=== PATIENT | female | born 1975 | race Caucasian/White ===

== ENCOUNTER 2025-06-30 18:23 | Observation (INO) | payer OTHER, SELFPAY ==
[2025-06-30] VITALS (21 sets, daily range): BP systolic 112–146; BP diastolic 53–96; PULSE 70–78; RESP 20; TEMP 36.6–37.3; O2SAT 92–100; BMI 38.6; BMI 40.2
--- NOTE | ~2025-06-30 | XR_ITS ---
EXAMINATION: XR retrograde pyelo w/stent LT DATE: 07/01/2025 13:23 INDICATION: Cystoscopy left stent TECHNIQUE: Fluoroscopic images from a left internal ureteral stent placement are submitted for review. 13 seconds of fluoroscopy time. FINDINGS: There is a left double-J internal ureteral stent projecting in expected position, with proximal Woodward loop at the level of the renal pelvis and distal loop in the pelvis within the bladder lumen. IMPRESSION: 1. Left internal ureteral stent placement. Please refer to real-time procedural findings for details. Reviewed, dictated and finalized at location I. 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 Left internal ureteral stent placement. Please refer to real-time procedur al findings for details.
--- NOTE | ~2025-06-30 | CT_ITS ---
EXAMINATION: CT abdomen and pelvis including lumbar spine without contrast: DATE: 06/30/2025. INDICATION: Right flank pain. Back pain. TECHNIQUE: CT was performed without contrast. Multiplanar reconstruction was obtained including lumbar spine. Radiation dose 1375 MG Y C.M. COMPARISON: None. FINDINGS: Lung bases do not show acute findings. No acute findings of liver and spleen in this noncontrast study. The gallbladder, pancreas and adrenal glands are normal. No calculi are obstruction of the right kidney. 5 mm calculus is noted on the left side the proximal left ureter at L2-3 level causing moderately significant hydronephrosis. No evidence of bladder calculus. No inflammatory changes in the pelvis. Nonspecific mild para-aortic lymphadenopathy with nodes measuring 5 to 6 mm in short axis in the midabdomen. No acute findings of the lumbar spine. Significant degenerative disc disease at L5-S1 level. IMPRESSION: 1. Limited noncontrast examination is not optimal to evaluate solid viscera, neoplasms and vascular structures. 2. 5 mm calculus in the proximal left ureter at L2-3 level causing moderately significant left hydronephrosis. 3. Nonspecific mild para-aortic lymphadenopathy as described above. 4. Significant degenerative disc disease at L5-S1 level lumbar spine. Reviewed, dictated and finalized at location T. R ENERGY TECHNICIAN IMPRESSION: 1. Limited noncontrast examination is not optimal to evaluate solid viscera, ne oplasms and vascular structures. 2. 5 mm calculus in the proximal left ureter at L2-3 level causing moderately s ignificant left hydronephrosis. 3. Nonspecific mild para-aortic lymphadenopathy as described above. 4. Significant degenerative disc disease at L5-S1 level lumbar spine.
--- NOTE | 2025-06-30 18:41 | ED.BACK ---
HPI - Back Pain/Injury General Chief Complaint: Abdominal Pain <Manju Teresa APRN - Last Filed: 06/30/25 18:44> Stated Complaint: abdominal/flank pain x 4 days <Manju Teresa APRN - Last Filed: 06/30/25 18:44> Time Seen by Provider: 06/30/25 18:41 <Manju Teresa APRN - Last Filed: 06/30/25 18:44> Focused HPI: Patient is a 50-year-old female who presents to the ER with left back/flank pain. She reports her pain started earlier today. Patient reports her last bowel movement was at 11:00 a.m. this morning and it was small/liquid. She denies any urinary symptoms, recent fevers, chest pain or shortness of breath. Patient denies any medical history relevant to this ER visit. She does endorse nausea and vomiting. GENERAL: Ill-appearing, well-nourished, and in no acute distress. HEAD: Normocephalic, atraumatic. CHEST: Clear to auscultation. ?No respiratory distress. HEART: Regular rate and rhythm.?+ R CVA tenderness NEURO: ?Alert and oriented x3. ABD: + BS, no abdominal tenderness Patient screened in triage and initial orders placed.? ?Additional care and disposition to be based upon?diagnostic testing and treatment. <Manju Teresa APRN - Last Filed: 06/30/25 18:44> History of Present Illness HPI Narrative: He can not tell me that she has been having pain to her left flank now for about 4 days, it has been increasing and worsening so she finally came in today because she can not stand it, she has also been having nausea vomiting. No history of kidney stones. <Mindi Rothman MD - Last Filed: 06/30/25 22:08> Related Data Home Medications: Home Medications ?Medication ?Instructions ?Recorded ?Confirmed ?Last Taken ?Type buspirone 15 mg tablet 15 mg PO DAILY 06/30/25 07/01/25 06/30/25 History meloxicam 15 mg tablet 15 mg PO DAILY 07/01/25 07/01/25 06/30/25 History sertraline 100 mg tablet 100 mg PO DAILY 07/01/25 07/01/2525 History <Manju Teresa APRN - Last Filed: 06/30/25 18:44> Allergies/Adverse Reactions: Allergies Allergy/AdvReac Type Severity Reaction Status Date / Time codeine Allergy Unknown HIVES Verified 06/30/25 18:24 <Manju Teresa APRN - Last Filed: 06/30/25 18:44> Review of Systems Review of Systems: All systems reviewed & are unremarkable except as noted in HPI and below <Mindi Rothman MD - Last Filed: 06/30/25 22:08> [facility] Social History Social History: Social History Smoking status: Never smoker Alcohol intake: never Substance use type: does not use Lack of Transportation: No Lack of Food: Never True Current Housing: Decline to Answer Concerned About Future Housing: No Difficulty Paying Gas/Electric Bills: No Difficulty Paying for Meds: No Currently Unemployed: No Education: Bachelor's Degree Difficulty w/ Childcare or Family Care: No Spiritual care concerns: No <Manju Teresa APRN - Last Filed: 06/30/25 18:44> Exam Narrative: EXAMINATION OF ORGAN SYSTEMS/BODY AREAS: Constitutional: Vital signs per nursing GENERAL: Appears quite uncomfortable HEAD: Normal with no signs of head trauma. EYES: EOMI, conjunctiva normal ENT: Hearing grossly intact LUNGS: Nonlabored breathing. HEART: [Regular rate and rhythm] ABD: [Soft], some left CVA tenderness EXT: Normal range of motion SKIN: [No rashes or lesions.] NEURO: [Alert and oriented x 3. No gross focal sensory or strength deficits.] PSYCH: Normal affect <Mindi Rothman MD - Last Filed: 06/30/25 22:08> Course Course Emergency Course: Patient care signed over pending discussion with Urology. I spoke to Dr. Rose from urology recommended hospitalist admission and making the patient NPO at midnight for potential interventions. Recommended pain control and antibiotics if he UTI found. Urinalysis returned without any UTI. Patient admitted to the hospitalist service per discussion with previous provider. <Chuck An MD - Last Filed: 07/01/25 03:12> Vital Signs Vital signs: Vital Signs Temperature 36.6 C 06/30/25 18:34 Pulse Rate 78 06/30/25 18:34 Respiratory Rate 20 06/30/25 18:34 Blood Pressure 140/92 H 06/30/25 18:34 Pulse Oximetry 99 06/30/25 18:34 Oxygen Delivery Room Air 06/30/25 18:34 Temperature 36.9 C 06/30/25 23:50 Pulse Rate 70 06/30/25 23:50 Respiratory Rate 20 06/30/25 23:50 Blood Pressure 112/53 L 06/30/25 23:50 Pulse Oximetry 98 06/30/25 23:50 Oxygen Delivery Room Air 06/30/25 23:55 <Manju Teresa, [employer] DEVELOPMENT ENGINEER - Last Filed: 06/30/25 18:44> Vital Signs Temperature 36.6 C 06/30/25 18:34 Pulse Rate 78 06/30/25 18:34 Respiratory Rate 20 06/30/25 18:34 Blood Pressure 140/92 H 06/30/25 18:34 Pulse Oximetry 99 06/30/25 18:34 Oxygen Delivery Room Air 06/30/25 18:34 Temperature 36.9 C 06/30/25 23:50 Pulse Rate 70 06/30/25 23:50 Respiratory Rate 20 06/30/25 23:50 Blood Pressure 112/53 L 06/30/25 23:50 Pulse Oximetry 98 06/30/25 23:50 Oxygen Delivery Room Air 06/30/25 23:55 <Mindi Rothman MD - Last Filed: 06/30/25 22:08> Vital Signs Temperature 36.6 C 06/30/25 18:34 Pulse Rate 78 06/30/25 18:34 Respiratory Rate 20 06/30/25 18:34 Blood Pressure 140/92 H 06/30/25 18:34 Pulse Oximetry 99 06/30/25 18:34 Oxygen Delivery Room Air 06/30/25 18:34 Temperature 36.9 C 06/30/25 23:50 Pulse Rate 70 06/30/25 23:50 Respiratory Rate 20 06/30/25 23:50 Blood Pressure 112/53 L 06/30/25 23:50 Pulse Oximetry 98 06/30/25 23:50 Oxygen Delivery Room Air 06/30/25 23:55 <Chuck An MD - Last Filed: 07/01/25 03:12> MDM - Back Pain/Injury Medical Records Medical records narrative: ED COURSE AND MEDICAL DECISION MAKINF presenting to the emergency department for acute flank pain for the last 4 days, symptoms are concerning for likely renal colic versus pyelonephritis. Urinalysis is ordered. [Morphine 4 mg, Zofran 4mg] are ordered. CT scan of the abdomen/pelvis is ordered. Labs are remarkable for: Elevated white count 12.1, creatinine 0.9. CT scan of the abdomen/pelvis is reviewed by myself and interpreted by radiology: 5 mm proximal left ureter stone. On reevaluation, the patient still having some pain but appears more comfortable. I did discuss potential discharge with outpatient follow-up versus admission for pain control, she would rather be admitted at this time since she is concerned she may not be able to tolerate the pain at home. Pending urology call back, discussed with hospitalist for admission. <Mindi Rothman MD - Last Filed: 06/30/25 22:08> Lab Data Result diagrams: 06/30/25 20:33 06/30/25 20:33 <Manju Teresa APRN - Last Filed: 06/30/25 18:44> Labs: Lab Results 06/30/25 06/30/25 Range/Units 20:33 21:46 WBC 12.1 H (4.5-10.0) K/mm3 RBC 4.19 L (4.2-5.4) M/mm3 Hgb 12.8 (12.0-15.0) g/dL Hct 38.3 (37.0-47.0) % MCV 91.4 (80-100) fl MCH 30.5 (26-34) pg MCHC 33.4 (32-36) g/dl RDW 13.8 (11.5-14.5) % Plt Count 307 (150-375) k/mm3 MPV 9.3 (7.4-10.4) fl Immature Gran % (Auto) 0.2 (0-0.5) % Neut % (Auto) 84.6 H (45.5-73.1) % Lymph % (Auto) 7.4 L (18.3-44.2) % [place] % (Auto) 7.3 (2.6-8.5) % Eos % (Auto) 0.2 (0-4.4) % Baso % (Auto) 0.3 (0.2-1.2) % Lymph # (Auto) 0.90 (0.9-3.2) K/mm3 [place] # (Auto) 0.9 H (0.1-0.6) K/mm3 Eos # (Auto) 0.0 (0-0.3) K/mm3 Baso # (Auto) 0.0 (0.0-0.1) K/mm3 Abs Immat Gran (auto) 0.03 (0.00-0.031) K/mm3 Absolute Neuts (auto) 10.2 H (1.3-6.7) K/mm3 Absolute Nucleated RBC 0.000 (0.0-0.012) K/mm3 Nucleated RBC % 0.0 (0.0-0.2) % Sodium 136 L (137-145) mmol/L Potassium 4.1 (3.4-5.0) mmol/L Chloride 104 (98-107) mmol/L Carbon Dioxide 26 (22-30) mmol/L Anion Gap 6 (4-12) mmol/L BUN 20 H (7-17) mg/dL Creatinine 0.90 (0.7-1.0) mg/dL Estim Creat Clear Calc 84 ml/min Estimated GFR > 60 (59 - ) Glucose 99 (65-110) mg/dL Calcium 9.1 (8.4-10.2) mg/dL Total Bilirubin 0.4 (0.2-1.3) mg/dL AST 24 (14-36) U/L ALT 16 (6-35) U/L Alkaline Phosphatase 61 (38-126) U/L Total Protein 6.9 (6.3-8.2) g/dL Albumin 3.9 (3.5-5.1) g/dL Urine Color Yellow (Yellow) Urine Appearance Clear (Clear) Urine pH 5.5 (5.0-9.0) Ur Specific [place] 1.015 (1.001-1.035) Urine Protein Negative (Negative) mg/dL Urine Glucose (UA) Negative (Negative) mg/dL Urine Ketones 1+ H (Negative) mg/dL Ur Blood (Man) 2+ H (Negative) Urine Nitrate Negative (Negative) Urine Bilirubin Negative (Negative) Urine Urobilinogen 0.2 (<2.0) mg/dL Leukocyte Esterase Rfl Trace H (Negative) CHRIS/UL Urine RBC 11-20 H (0-2) /hpf Urine WBC 0-5 (0-3) /hpf Ur Squamous Epith Cells Occasional (Few) /hpf Urine Bacteria Rare /hpf Urine Casts 0-2 <Manju Teresa, [employer] DEVELOPMENT ENGINEER - Last Filed: 06/30/25 18:44> Lab Results 06/30/25 06/30/25 Range/Units 20:33 21:46 WBC 12.1 H (4.5-10.0) K/mm3 RBC 4.19 L (4.2-5.4) M/mm3 Hgb 12.8 (12.0-15.0) g/dL Hct 38.3 (37.0-47.0) % MCV 91.4 (80-100) fl MCH 30.5 (26-34) pg MCHC 33.4 (32-36) g/dl RDW 13.8 (11.5-14.5) % Plt Count 307 (150-375) k/mm3 MPV 9.3 (7.4-10.4) fl Immature Gran % (Auto) 0.2 (0-0.5) % Neut % (Auto) 84.6 H (45.5-73.1) % Lymph % (Auto) 7.4 L (18.3-44.2) % [place] % (Auto) 7.3 (2.6-8.5) % Eos % (Auto) 0.2 (0-4.4) % Baso % (Auto) 0.3 (0.2-1.2) % Lymph # (Auto) 0.90 (0.9-3.2) K/mm3 [place] # (Auto) 0.9 H (0.1-0.6) K/mm3 Eos # (Auto) 0.0 (0-0.3) K/mm3 Baso # (Auto) 0.0 (0.0-0.1) K/mm3 Abs Immat Gran (auto) 0.03 (0.00-0.031) K/mm3 Absolute Neuts (auto) 10.2 H (1.3-6.7) K/mm3 Absolute Nucleated RBC 0.000 (0.0-0.012) K/mm3 Nucleated RBC % 0.0 (0.0-0.2) % Sodium 136 L (137-145) mmol/L Potassium 4.1 (3.4-5.0) mmol/L Chloride 104 (98-107) mmol/L Carbon Dioxide 26 (22-30) mmol/L Anion Gap 6 (4-12) mmol/L BUN 20 H (7-17) mg/dL Creatinine 0.90 (0.7-1.0) mg/dL Estim Creat Clear Calc 84 ml/min Estimated GFR > 60 (59 - ) Glucose 99 (65-110) mg/dL Calcium 9.1 (8.4-10.2) mg/dL Total Bilirubin 0.4 (0.2-1.3) mg/dL AST 24 (14-36) U/L ALT 16 (6-35) U/L Alkaline Phosphatase 61 (38-126) U/L Total Protein 6.9 (6.3-8.2) g/dL Albumin 3.9 (3.5-5.1) g/dL Urine Color Yellow (Yellow) Urine Appearance Clear (Clear) Urine pH 5.5 (5.0-9.0) Ur Specific [place] 1.015 (1.001-1.035) Urine Protein Negative (Negative) mg/dL Urine Glucose (UA) Negative (Negative) mg/dL Urine Ketones 1+ H (Negative) mg/dL Ur Blood (Man) 2+ H (Negative) Urine Nitrate Negative (Negative) Urine Bilirubin Negative (Negative) Urine Urobilinogen 0.2 (<2.0) mg/dL Leukocyte Esterase Rfl Trace H (Negative) CHRIS/UL Urine RBC 11-20 H (0-2) /hpf Urine WBC 0-5 (0-3) /hpf Ur Squamous Epith Cells Occasional (Few) /hpf Urine Bacteria Rare /hpf Urine Casts 0-2 <Mindi Rothman MD - Last Filed: 06/30/25 22:08> Lab Results 06/30/25 06/30/25 Range/Units 20:33 21:46 WBC 12.1 H (4.5-10.0) K/mm3 RBC 4.19 L (4.2-5.4) M/mm3 Hgb 12.8 (12.0-15.0) g/dL Hct 38.3 (37.0-47.0) % MCV 91.4 (80-100) fl MCH 30.5 (26-34) pg MCHC 33.4 (32-36) g/dl RDW 13.8 (11.5-14.5) % Plt Count 307 (150-375) k/mm3 MPV 9.3 (7.4-10.4) fl Immature Gran % (Auto) 0.2 (0-0.5) % Neut % (Auto) 84.6 H (45.5-73.1) % Lymph % (Auto) 7.4 L (18.3-44.2) % [place] % (Auto) 7.3 (2.6-8.5) % Eos % (Auto) 0.2 (0-4.4) % Baso % (Auto) 0.3 (0.2-1.2) % Lymph # (Auto) 0.90 (0.9-3.2) K/mm3 [place] # (Auto) 0.9 H (0.1-0.6) K/mm3 Eos # (Auto) 0.0 (0-0.3) K/mm3 Baso # (Auto) 0.0 (0.0-0.1) K/mm3 Abs Immat Gran (auto) 0.03 (0.00-0.031) K/mm3 Absolute Neuts (auto) 10.2 H (1.3-6.7) K/mm3 Absolute Nucleated RBC 0.000 (0.0-0.012) K/mm3 Nucleated RBC % 0.0 (0.0-0.2) % Sodium 136 L (137-145) mmol/L Potassium 4.1 (3.4-5.0) mmol/L Chloride 104 (98-107) mmol/L Carbon Dioxide 26 (22-30) mmol/L Anion Gap 6 (4-12) mmol/L BUN 20 H (7-17) mg/dL Creatinine 0.90 (0.7-1.0) mg/dL Estim Creat Clear Calc 84 ml/min Estimated GFR > 60 (59 - ) Glucose 99 (65-110) mg/dL Calcium 9.1 (8.4-10.2) mg/dL Total Bilirubin 0.4 (0.2-1.3) mg/dL AST 24 (14-36) U/L ALT 16 (6-35) U/L Alkaline Phosphatase 61 (38-126) U/L Total Protein 6.9 (6.3-8.2) g/dL Albumin 3.9 (3.5-5.1) g/dL Urine Color Yellow (Yellow) Urine Appearance Clear (Clear) Urine pH 5.5 (5.0-9.0) Ur Specific [place] 1.015 (1.001-1.035) Urine Protein Negative (Negative) mg/dL Urine Glucose (UA) Negative (Negative) mg/dL Urine Ketones 1+ H (Negative) mg/dL Ur Blood (Man) 2+ H (Negative) Urine Nitrate Negative (Negative) Urine Bilirubin Negative (Negative) Urine Urobilinogen 0.2 (<2.0) mg/dL Leukocyte Esterase Rfl Trace H (Negative) CHRIS/UL Urine RBC 11-20 H (0-2) /hpf Urine WBC 0-5 (0-3) /hpf Ur Squamous Epith Cells Occasional (Few) /hpf Urine Bacteria Rare /hpf Urine Casts 0-2 <Chuck An MD - Last Filed: 07/01/25 03:12> Discharge Plan Discharge Clinical Impression: Calculus of proximal left ureter <Manju Teresa APRN - Last Filed: 06/30/25 18:44> Patient Disposition: Still a Patient <Manju Teresa APRN - Last Filed: 06/30/25 18:44> Condition: Stable <Manju Teresa APRN - Last Filed: 06/30/25 18:44>
[2025-06-30 20:40] LABS: Hematocrit 38.3 % (37.0-47.0); Hemoglobin 12.8 g/dL (12.0-15.0); Immature Granulocyte Percent A 0.2 % (0-0.5); Lymphocytes Absolute Auto 0.90 K/mm3 (0.9-3.2); Mean Corpuscular HGB Conc 33.4 g/dl (32-36); Mean Corpuscular Hemoglobin 30.5 pg (26-34); Mean Corpuscular Volume 91.4 fl (80-100); Nucleated Red Blood Cells Absolute Auto 0.000 K/mm3 (0.0-0.012); Nucleated Red Blood Cells Perc 0.0 % (0.0-0.2); Platelet Count Result 307 k/mm3 (150-375); Red Blood Count 4.19 M/mm3 (4.2-5.4); White Blood Count 12.1 K/mm3 (4.5-10.0)
[2025-06-30 20:50] LABS: Alanine Aminotransferase 16 U/L (6-35); Albumin Level 3.9 g/dL (3.5-5.1); Alkaline Phosphatase 61 U/L (38-126); Anion Gap 6 mmol/L (4-12); Aspartate Amino Transferase 24 U/L (14-36); Bilirubin,Total 0.4 mg/dL (0.2-1.3); Blood Urea Nitrogen 20 mg/dL (7-17); Calcium 9.1 mg/dL (8.4-10.2); Carbon Dioxide 26 mmol/L (22-30); Chloride 104 mmol/L (98-107); Estimated CRCL calculation 84 ml/min; Estimated Glomerular Filt Rate > 60; Glucose 99 mg/dL (65-110); Potassium 4.1 mmol/L (3.4-5.0); Sodium 136 mmol/L (137-145); Total Protein 6.9 g/dL (6.3-8.2)
[2025-06-30] MEDS: MORPHINE SULFATE (*CRX) 4 MG/ML INJ IV PUSH ×2 (20:50→23:00)
[2025-06-30] MEDS: ONDANSETRON INJ 4 MG/2 ML VIAL IV PUSH (20:50)
--- OUTSIDE RECORDS SUMMARY | 2025-06-30 20:59 | XMS_ITS | Data Portability ---
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 Patient will come back in a year unless there are new symptoms. [email or web address] Not available 08/21/2021 16:01:03 09/03/2022 09/03/2022 Annual gynecological exam performed. Patient will come back in a year unless there are new symptoms. Not available 09/03/2022 16:55:55 Plan of Treatment Reminders Order Date Submit Date Provider Last Modified By Organization Details Last Modified Time Details Appointments None recorded. Lab None recorded. Referral None recorded. Procedures None recorded. Surgeries None recorded. Imaging MAMMO, screening, bilateral 2022 023 RICHY Not available 3 05:01:41 Medication Orders triamcinolo ne acetonide 0.1 % topical ointment 2021 022 [employer] [employer] #[id number], [address] [facility], [place], [place], [id number], 3 16:56:23 Patient TargetsNo targets recorded. Patient InstructionsNo instructions recorded. Reason for Referral None Reported. 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 Elect [place] by Otto Candelaria MD on 022 at 12:59 PM ----- ----- ----- ----- ----- ----- ----- ----- ----- ----- ----- ----- ----- ----- ----- ----- ----- ---- COMME NT: There are no viral cytop athic effec ts seen. There is no dyspl martha or neopl martha. CLINI [facility] INFOR MATIO N: not provi ded MICRO SCOPI C DESCR IPTIO N: A micro scopi c exami natio n was perfo rmed. GROSS DESCR IPTIO N: A. U. The speci men is recei miguel a in forma amparo label ed with the patie nt's name and demog raphi cs only. It consi sts of a duarte skin tag measu ring 1.4 x 1.0 x 0.6 cm. The erasmo n is inked blue. The speci men is trise cted and submi tted zanar nathalie in casse tte A1. Gross ed by Parish Soto Not Available [facility] (Lab) [address], [place], [address], 09/05/2021 14:02:30 Result Notes None recorded. Procedures Surgical History Date Name Laterality Status Provider Name and Address Organization Details Recorded Time 09/09/19 22 colonoscopy completed Kendal Price [facility] [address], [place], [address], [facility] 09/03/2022 17:04:09 09/03/19 22 Skin Tag Removal completed Kendal Price [facility] [address], [place], [address], [facility] 09/03/2021 16:36:18 08/13/19 22 Date of Last Mammogram completed [facility] 08/21/2021 16:01:28 Laparoscopy completed [facility] 08/21/2021 16:01:39 Tonsillectomy completed [facility] 08/21/2021 16:01:39 Tubal Ligation completed [facility] 08/21/2021 16:01:39 Partial Hysterectomy completed [facility] 08/21/2021 16:01:39 Imaging Results None recorded. Procedure Notes None recorded. Medical Equipment None Reported. Allergies Allergen ID Allergen Name Allergen Category Reaction Reaction Severity Criticality Documentation Date Start Date Code Code System Note Provider Name and Address Organization Details Recorded Time 58351 codeine medicatio n rash moderate Not available 08/21/2021 2670 [facility] 16:01:16 Medications Name Sig Start Date Stop Date Status Note LastModified by Organization Details LastModified Time valacyclovi r 1 gram tablet TAKE 1 TABLET BY MOUTH TWICE DAILY FOR 7 DAYS active Not Available Not Available No t Available meloxicam 15 mg tablet TAKE 1 TABLET BY MOUTH EVERY DAY active Not Available Not Available No t Available sertraline 100 mg tablet TAKE 1 TABLET BY MOUTH EVERY DAY active Not Available Not Available No t Available triamcinolo ne acetonide 0.1 % topical cream APPLY THIN LAYER TOPICALLY TO THE AFFECTED AREA TWICE DAILY 09/03 completed Not Available Not Available Not Available cyclopentol ate 1 % eye drops 09/03 completed Not Available Not Available Not Available prednisolon e acetate 1 % eye drops,suspe nsion 09/03 completed Not Available Not Available Not Available meclizine 25 mg tablet TAKE 1 TABLET BY MOUTH EVERY DAY NEEDED active Not Available Not Available No t Available triamcinolo ne acetonide 0.1 % topical ointment APPLY THIN LAYER TOPICALLY TO THE AFFECTED AREA 1 TO 2 TIMES PER DAY FOR 7 DAYS NEEDED 09/03 completed Not Available Not Available Not Available polymyxin B sulfate 10,000 unit-trimet hoprim 1 mg/mL eye drops INSTILL 3 DROPS IN LEFT EYE THREE TIMES DAILY FOR 7 DAYS 09/03 completed Not Available Not Available Not Available hydroxyzine HCl 25 mg tablet TAKE 1 TABLET BY MOUTH FOUR TIMES DAILY FOR 15 DAYS NEEDED active Not Available Not Available No t Available ondansetron 4 mg disintegrat ing tablet DISSOLVE 1 TO 2 TABLETS BY MOUTH EVERY 6 HOURS NEEDED active Not Available Not Available No t Available phentermine 37.5 mg capsule active Not Available Not Available Not Available Valtrex 09/03 completed Not Available Not Available Not Available diclofenac 1 % topical gel APPLY TO THE LEFT KNEE TWICE DAILY 08/21 completed Not Available Not Available Not Available Clenpiq 10 mg-3.5 gram-12 gram/160 mL oral solution TAKE DIRECTED 09/03 completed Not Available Not Available Not Available Vitals Date Recorded Systolic And Diastolic Provider Name and Address Organization Details Last Updated DateTime 08/21/2021 128/80 mm[Hg] Kendal Price, [facility] [address], [place], [address], [facility] 08/21/2021 17:56:00 Date Recorded Body height Body mass index (BMI) Body weight Provider Name and Address Organization Details Last Updated DateTime 08/21/2021 167.64 cm 44.9 kg/m2 603650.68 g Migue Prince [facility] 08/21/2021 16:06:09 Date Recorded Body height Body mass index (BMI) Body weight Systolic And Diastolic Provider Name and Address Organization Details Last Updated DateTime 09/03/2021 167.64 cm 44.9 kg/m2 497934.68 g 128/70 mm[Hg] Karine [facility] 09/03/2021 15:54:12 Date Recorded Systolic And Diastolic Provider Name and Address Organization Details Last Updated DateTime 09/03/2022 132/78 mm[Hg] Kendal Price, [facility] [address], [place], [address], [facility] 09/03/2022 16:57:01 Date Recorded Body height Body mass index (BMI) Body weight Provider Name and Address Organization Details Last Updated DateTime 09/03/2022 167.64 cm 44.6 kg/m2 730723.21 g Karine Molina [facility] 09/03/2022 16:56:09 Date Recorded Systolic And Diastolic Provider Name and Address Organization Details Last Updated DateTime 09/13/2021 126/80 mm[Hg] Kendal Price, [facility] [address], [place], [address], [facility] 09/13/2021 15:41:38 Date Recorded Body height Body mass index (BMI) Body weight Provider Name and Address Organization Details Last Updated DateTime 09/13/2021 167.64 cm 44.9 kg/m2 546185.68 g Karine [facility] 09/13/2021 15:04:52 Social History Question Answer Notes LastModified by Organizat ion Details LastModified Time Do You Have An Advance Directive? No Information n ot available 08/21/2021 Are You Blind Or Do You Have Difficulty Seeing? No Information not available 08/21/2021 What Is Your Level Of Caffeine Consumption? Moderate Information not available 08/21/2021 How Much Tobacco Do You Chew? None Information not available 08/21/2021 In The 14 Days Before Symptom Onset, Have You Had Close Contact With A Laboratory-confirme d COVID-19 While That Case Was Ill? No Information n ot available 08/21/2021 In The 14 Days Before Symptom Onset, Have You Had Close Contact With A Person Who Is Under Investigation For COVID-19 While That Person Was Ill? No Information not available 08/21/2021 Have You Been To An Area Known To Be High Risk For COVID-19? No Information not available 08/21/2021 Are You Deaf Or Do You Have Serious Difficulty Hearing? No Information not available 08/21/2021 What Type Of Diet Are You Following? REGULAR Information n ot available 08/21/2021 What Is The Highest Grade Or Level Of School You Have Completed Or The Highest Degree You Have Received? [id number] Information not available 08/21/2021 Are There Any Guns Present In Your Home? Yes Information not available 08/21/2021 Do You Use Protection During Sex? No Information not available 08/21/2021 Do You Use Your Seat Belt Or Car Seat Routinely? No Information not available 08/21/2021 Do You Have Smoke And Carbon Monoxide Detectors In Your Home? Yes Information not available 08/21/2021 How Much Tobacco Do You Smoke? No Information not available 08/21/2021 Do You Use Sunscreen Routinely? Yes Information not available 08/21/2021 Have You Used IV Drugs? No Information not available 08/21/2021 Do You Have Difficulty Walking Or Climbing Stairs? No Information not available 09/03/2022 Sex: Unknown Functional Status Question Answer Note LastModified by Organizat ion Details LastModified Time Do you use any illicit or recreational drugs? No Information not available 08/21/2021 What is your level of alcohol consumption? Occasional Information not available 08/21/2021 Are you able to walk independently without assistance or assistive devices? YESWOREST Information not available 08/21/2021 Are you able to care for yourself independently? Yes Information not available 09/03/2022 What is your occupation? [employer] Information not available 08/21/2021 Do you have difficulty dressing, bathing, grooming, or toileting? No Information not available 09/03/2022 What is your exercise level? Moderate Information not available 08/21/2021 Mental Status Question Answer Note LastModified by Organization D etails LastModified Time Do you feel stressed (tense, restless, nervous, or anxious, or unable to sleep at night)? [id number] Information not available 08/21/2021 Family History Relationship Description Onset Age of this Age Resolved Age Notes LastModified by Organization Details LastModified Time Maternal Grandmother Diabetes mellitus Not available 2021 16:01:20 Father Anxiety disorder Not available 2021 16:01:20 Paternal Grandfather Family history of malignant neoplasm of pancreas [email or web address] Not available 08/2022 17:01:46 Paternal Grandmother Family history of malignant neoplasm of pancreas [email or web address] Not available 08/2022 17:01:39 Paternal Aunt Lupus erythematosu s [email or web address] Not available 08/2022 17:02:13 Medical History Condition Response Anxiety Disorder Y History of STI Y Other Y Arthritis Y Gynecological History Statement/Question Response Abnormal Pap N Date of Last Mammogram 08/13/2021 Date of LMP 03/03/2016 On BCP's at Conception? Y N Was last menstrual period normal N STIs/STDs N HPV Vaccine N Duration of Flow (days) 5 Current Control Method Hysterectom y Age at First Child 25 Frequency of Cycle (Q days) 20 Sexually Active? Y Age of first menstrual cycle 15 Date of Last Pap Smear Sexual Problems? N LMP Unknown N Obstetrics History GPAL:G 4 P 0 0 1 3 Type Value Spontaneous 1 Living 3 Total 4 Past Encounters Encounter ID Performer Location Encounter Start Date Encounter Closed Date Diagnosis/Indication Diagnosis SNOMED-CT Code Diagnosis ICD10 Code Diagnosis IMO Codes Diagnosis Note [id number] Kendal Price [facility] [address] [address] 08/21/2021 15:49:58 08/21/2021 18:02:23 Gynecologic examination 70623193 Z01.419 Suggested Calcium with Vitamin D 1200-1500m g daily. Patient advised to get an annual flu shot in the fall and she could obtain at [facility] or [facility] take care clinic. Also to obtain TDap vaccinatio n if you have not had one in the last 10 years. Recommend yearly mammograms . Encouraged monthly self breast exams. Encourage safe sexual practices, to use condoms and limit partners if not already in a monogamous relationsh ip. Engage in daily exercise of low impact aerobic exercise 45-60 minutes 4-5 times weekly. Avoid tobacco and illicit drugs as well as using moderation with alcohol intake less than 1-2 8 oz beverages daily. This lifestyle behavior pattern will lead to less health conditions and longer life span. If BMI greater than 25 weight watchers or dietary consult advised. All questions have been answered. Patient appears to understand informatio n, but if you have any questions please call or respond to this email. [facility] screening- cancer screen INVITAE--w ants to consider since so many have pancreatic cancer on her fathers side of the family including her father. Hx of hysterecet marilou for non-cancer indication sUSPSTF recommends against screening for cervical cancer in women older than 65yo or hysterecto my for non-cancer indication s & neg pap/hpv hx who have had adequate prior screening & are not otherwise at high risk for cervical cancer. Mammo completed 2020 wnlColon screen-dis cussed for next year.PCP-U TD with yearly visit Skin tag in vagina 27176 5000 D28.1 Schedule for removal 30mins appt [id number] Kendal Price [facility] [address] [address] 09/03/2021 15:40:18 09/03/2021 16:41:56 Skin tag in vagina 924782281 D28.1 Labia minora right side skin tag/growth removal.Sa mple sent.Post- procedure instructio ns reviewed.F /U x 2wks Time spent in visit is a total of 15 mins with at least 50% of visit consisting of counseling and review of plan of care.Addit ional precaution giovani measures were taken to minimize potential exposure to the Covid-19 virus during this patient s visit, including available hand online retailer upon arrive, temperatur e check and being asked a series of screening questions. All staff wore face coverings during this encounter, as well as provided additional cleaning and sanitizing of all surfaces, including countertop s, pens, chairs, door handles, light switches, etc, prior to and following the patient s visit. Patient is to contact office or go to nearest ED/Urgent care if fever >/= 100.1, pain, excessive bleeding, unusual drainage or swelling in area of concern; or experienci ng worsening sx's or new onset of concerning sx's. Understand ing verbalized . [place]. [id number] Kendal Price [facility] [address] [address] 09/13/2021 14:59:08 09/13/2021 15:47:48 Skin tag in vagina [id number] D28.1 Results of pathology reviewed-linden Gillis send small tube of triamcinol one for one area that looks a bit calloused and is itchy but really this area is healing extremely well. Time spent in visit is a total of 15 mins with at least 50% of visit consisting of counseling and review of plan of care.Addit ional precaution giovani measures were taken to minimize potential exposure to the Covid-19 virus during this patient s visit, including available hand online retailer upon arrive, temperatur e check and being asked a series of screening questions. All staff wore face coverings during this encounter, as well as provided additional cleaning and sanitizing of all surfaces, including countertop s, pens, chairs, door handles, light switches, etc, prior to and following the patient s visit. Patient is to contact office or go to nearest ED/Urgent care if fever >/= 100.1, pain, excessive bleeding, unusual drainage or swelling in area of concern; or experienci ng worsening sx's or new onset of concerning sx's. Understand ing verbalized . All questions answered to patient satisfacti on. [id number] Kendal Price [facility] [address] [address] 09/03/2022 16:46:07 09/03/2022 18:17:00 Gynecologic examination [id number] Z01.419 Suggested Calcium with Vitamin D 1200-1500m g daily. Patient advised to get an annual flu shot in the fall and she could obtain at [facility] or [facility] clinic. Also to obtain TDap vaccinatio n if you have not had one in the last 10 years. Recommend yearly mammograms . Encouraged monthly self breast exams. Encourage safe sexual practices, to use condoms and limit partners if not already in a monogamous relationsh ip. Engage in daily exercise of low impact aerobic exercise 45-60 minutes 4-5 times weekly. Avoid tobacco and illicit drugs as well as using moderation with alcohol intake less than 1-2 8 oz beverages daily. This lifestyle behavior pattern will lead to less health conditions and longer life span. If BMI greater than 25 weight watchers or dietary consult advised. All questions have been answered. Patient appears to understand informatio n, but if you have any questions please call or respond to this email. Pap/hpv d/c USPSTF recommends against screening for cervical cancer in women older than 65yo, those who've had a hysterecto my for non-cancer indication s, & who have had adequate prior screening & are not otherwise at high risk for cervical cancer. STD Screen declined Genetic Screen discussed Colon Screen UTD PCP Dexa Screen PCP Routine Labs PCPMammo ordered Screening mammography 24 322177 Z12.31 Health Concerns Section Related Observation LastModified by Organization Detai ls LastModified Time None Recorded Concern Status LastModified by Organization Details LastModified Time None Recorded Advance Directives Directive N: Payers Insurance Date Sequence Insurance Name Policy Number Policy Garcia Covered Member ID Garcia Member ID Guarantor Name 09/03/2022 1 [employer] [id number] L Ismael Evans [id number] AB Faiza Trimble Notes Date Note Type Note Provider Name and Address Organization Details Recorded Time 2 text/html 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 For vaginal bleeding, patient reportshistory of menopause having occurredandno history of post menopausal bleeding. For urinary symptoms, patient reportsno hematuria,no incontinence,no nocturia, andno urinary frequency. For vulva, patient reportsno genital lesionandno vulvar atrophy. For vagina, patient reportsnormal vaginal dischargeandno vaginal atrophy.Breast symptomsFor breast, patient reportsno breast lump,no nipple discharge, andno breast pain.Psychological symptomsFor sexual complaints, patient reportsno sexual complaints. For psychological symptoms, patient reportsno depressionandno anxiety.Preventative measuresFor preventive measures, patient reportsencourage regular mammograms starting age 40,encourage self breast examination,encourage regular exercise,encourage no tobacco use, andneeds to schedule mammogram. Hx of hysterectomy for non-cancer indications Kendal Price [facility] [address], [place], [address], [facility] 08/21/2021 17:59:00 2 text/html ROS as noted in the HPI Here today for labial skin tag/skin growth removal. Kendal Price [facility] [address], [place], [address], [facility] 09/03/2021 16:36:33 2 text/html ROS as noted in the HPI Here today for 2wk vaginal check after removal of labial polyp. Kendal Price [facility] [address], [place], [address], [facility] 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 For vaginal bleeding, patient reportshistory of menopause having occurredandno history of post menopausal bleeding. For urinary symptoms, patient reportsno hematuria,no incontinence,no nocturia, andno urinary frequency. For vulva, patient reportsno genital lesionandno vulvar atrophy. For vagina, patient reportsnormal vaginal dischargeandno vaginal atrophy.Breast symptomsFor breast, patient reportsno breast lump,no nipple discharge, andno breast pain.Psychological symptomsFor sexual complaints, patient reportsno sexual complaints. For psychological symptoms, patient reportsno depressionandno anxiety.Preventative measuresFor preventive measures, patient reportsencourage regular mammograms starting age 40,encourage self breast examination,encourage regular exercise,encourage no tobacco use,needs to schedule mammogram, andhistory of recent colonoscopy. Kendal Price, [facility] [address], [place], [address], [facility] 09/03/2022 17:25:36 OBGyn Episode Ob Episode Information Episode Created Date Number of Fetuses Patient Bloodtype Patient rh Status Prepregnancy Weight lbs Domestic Partner Domestic Partner Phone Father Name Disease Education Specialist Status 08/21/19 22 1 CLOSED Fetus Data First Name Last Name Admitted to NICU Weight (g) Sex Living Outcome Pediatric Complications Fetus ID Race Codes Race Delivery Type 3401.94 Full Term [id number] Tho Calculation Initial Tho Date Initial Exam Date Initial Exam Provider Initial Ultrasound Date Last Menstrual Period Date Ultra Sound Weeks Gestation 0 Eighteen To Twenty Week Tho Update Ultra Sound Date Fundal Height At Umbil Quickening Date Ultra Sound Latest Weeks Gestation Final Tho Confirmed By Final Tho Confirmed Date Final Tho Date Ultra Sound Latest Days Gestation 0 0 Menstrual History Last Menstrual Date Menses Monthly On Bcp Conception Prior Menses Frequency Hcg Plus Date Menarche Onset Age Delivery Information Delivery Date Delivery Type Labor Anesthesia Weeks Gestation Incision Type Labor Labor Length Hrs Delivered By Post Complications Tubal Sterilization Discharge Date Comments 0 39 Discharge Information Feeding Method Contraceptive Method Maternal HG B and HCT Levels Ob Episode Information Episode Created Date Number of Fetuses Patient Bloodtype Patient rh Status Prepregnancy Weight lbs Domestic Partner Domestic Partner Phone Father Name Disease Education Specialist Status 08/21/19 22 1 CLOSED Fetus Data First Name Last Name Admitted to NICU Weight (g) Sex Living Outcome Pediatric Complications Fetus ID Race Codes Race Delivery Type 3146.56 [id number] Full Term [id number] Tho Calculation Initial Tho Date Initial Exam Date Initial Exam Provider Initial Ultrasound Date Last Menstrual Period Date Ultra Sound Weeks Gestation 0 Eighteen To Twenty Week Tho Update Ultra Sound Date Fundal Height At Umbil Quickening Date Ultra Sound Latest Weeks Gestation Final Tho Confirmed By Final Tho Confirmed Date Final Tho Date Ultra Sound Latest Days Gestation 0 0 Menstrual History Last Menstrual Date Menses Monthly On Bcp Conception Prior Menses Frequency Hcg Plus Date Menarche Onset Age Delivery Information Delivery Date Delivery Type Labor Anesthesia Weeks Gestation Incision Type Labor Labor Length Hrs Delivered By Post Complications Tubal Sterilization Discharge Date Comments 3 38 Discharge Information Feeding Method Contraceptive Method Maternal HG B and HCT Levels Ob Episode Information Episode Created Date Number of Fetuses Patient Bloodtype Patient rh Status Prepregnancy Weight lbs Domestic Partner Domestic Partner Phone Father Name Disease Education Specialist Status 08/21/19 22 1 CLOSED Fetus Data First Name Last Name Admitted to NICU Weight (g) Sex Living Outcome Pediatric Complications Fetus ID Race Codes Race Delivery Type 3770.25 [id number] Full Term [id number] Tho Calculation Initial Tho Date Initial Exam Date Initial Exam Provider Initial Ultrasound Date Last Menstrual Period Date Ultra Sound Weeks Gestation 0 Eighteen To Twenty Week Tho Update Ultra Sound Date Fundal Height At Umbil Quickening Date Ultra Sound Latest Weeks Gestation Final Tho Confirmed By Final Tho Confirmed Date Final Tho Date Ultra Sound Latest Days Gestation 0 0 Menstrual History Last Menstrual Date Menses Monthly On Bcp Conception Prior Menses Frequency Hcg Plus Date Menarche Onset Age Delivery Information Delivery Date Delivery Type Labor Anesthesia Weeks Gestation Incision Type Labor Labor Length Hrs Delivered By Post Complications Tubal Sterilization Discharge Date Comments 2 39 Discharge Information Feeding Method Contraceptive Method Maternal HG B and HCT Levels
--- OUTSIDE RECORDS SUMMARY | 2025-06-30 20:59 | XMS_ITS | Patient Health Record ---
Author Organization [facility] Address [address] [facility] [address] [place] [address] Care Team Providers Care Technical Laboratory Asst Name Role Phone Pablito Lopez MD Primary Care Provider Unavailab quentin NaunvanessaAlphonsov Unavailable [phone] Reason For Referral No Information Problems Problem Type SNOMED Code ICD Code Onset Dates Problem Status W/U Status Risk Notes Problem Diverticular disease of colon (818261550) Diverticulosis of large intestine without perforation or abscess without bleeding (K57.30) Active confirmed Plan Of Treatment No Information Insurance Providers Payer Name Payer Address Payer Phone Subscriber Number Group Number Insured Name Patient Relationship to Insured Coverage Start Date Coverage End Date [employer] Access PPO [address] [place] [phone] [id number] Ismael Evans Spouse - patient is the spouse of the insured
[2025-06-30 22:15] LABS: Add Urine Microscopic? YES; Appearance Urine Clear (Clear); Glucose Urine UA Negative (Negative); Leukocyte Esterase Ur Trace LEU/UL (Negative); Nitrate Urine Negative (Negative); Non Pathogenic Casts 0-2; Specific Grav Ur 1.015 (1.001-1.035)
[2025-06-30] MEDS: LACTATED RINGERS 1,000 ML 125 ML IV CONT (22:41)
--- NOTE | 2025-06-30 23:15 | WPCEDHO ---
ED Hand Off Checklist All vitals saved:yes IV Site documented:yes All med administrations documented:yes Triage Note Triage Note Pt amb to ED c/o abd and L flank 06/30/25 21:51 pain x 4 days. States has tried laxatives without relief. Endorses N/V. States last BM today was liquidy and little. Denies urinary sx. Allergies codeine Allergy (Unknown, Verified 06/30/25 18:24) HIVES Active Medications including assessments/comments Lactated Ringer's (Lr - Lactated Ringers Iv) 1,000 mls @ 125 mls/hr IV CONT .Q8H CALLI Last Admin: 06/30/25 22:41 Dose: 125 mls/hr Documented By: SRINIVASA Infusion/Titration Document 06/30/25 22:41 SRINIVASA (Rec: 06/30/25 22:42 SRINIVASA [id number]) Intake IV Site Peripheral Access Left Antecubital Container Volume 1,000 Waste Amount 0 Dosing Infusion Rate 125 Cumulative Dose Not Applicable Increase/Decrease Started Elapsed Time Elapsed Time ( 0m minutes) Morphine Sulfate (Morphine Sulfate (*Crx) 4 Mg/Ml Inj) 4 mg IV PUSH Q2H PRN PRN Reason: Pain Rated 7-10 Last Admin: 06/30/25 23:00 Dose: 4 mg Documented By: SRINIVASA MAR Pain Assessment Document 06/30/25 23:00 SRINIVASA (Rec: 06/30/25 23:00 SRINIVASA [id number]) Pain Evaluation Pain Evaluation Assessment Pain Scale Pain Scale Used Numeric (1 - 10) Self Report Pain Assessment Reported Pain Level 5 Pain Score Pain Score 5: Self Report Administered/Completed Medications Discontinued Medications Morphine Sulfate (Morphine Sulfate (*Crx) 4 Mg/Ml Inj) 4 mg IV PUSH ONCE STA Stop: 06/30/25 20:06 Last Admin: 06/30/25 20:50 Dose: 4 mg Documented By: SRINIVASA Ondansetron HCl (Ondansetron Inj 4 Mg/2 Ml Vial) 4 mg IV PUSH ONCE STA Stop: 06/30/25 20:06 Last Admin: 06/30/25 20:50 Dose: 4 mg Documented By: SRINIVASA Interventions/Assessments IV / Saline Lock, Insert Start: 06/30/25 18:23 Freq: Status: Active Protocol: Document 06/30/25 22:41 SRINIVASA (Rec: 06/30/25 22:42 LLG [id number]) IV Assessment Peripheral Access Left Antecubital IV Catheter Access Initiated IV Insertion Date 06/30/25 IV Insertion Time 22:42 Catheter Gauge 18 IV Insertion 1 Attempts IV Site Assessment WNL IV Care and WNL Maintenance PA: Gastrointestinal Assessment Start: 06/30/25 18:23 Freq: Status: Active Protocol: Document 06/30/25 21:51 [facility] (Rec: 06/30/25 21:52 [facility] [id number]) GI Assessment Gastrointestinal Pain Symptoms Description Flat,Soft Pattern Normal Nausea/Vomiting Assessment Nausea Frequency Intermittent Emesis Frequency Intermittent Last Vital Signs Temperature 99.1 F 06/30/25 23:01 Pulse Rate 78 06/30/25 18:34 Respiratory Rate 20 06/30/25 18:34 Pulse Oximetry 99 06/30/25 23:01 Blood Pressure 146/96 H 06/30/25 23:01 Blood Pressure Mean 112 06/30/25 23:01 Oxygen Delivery Room Air 06/30/25 18:34 Weight 108.6 kg 06/30/25 21:51 Last Result - Abnormals Only WBC 12.1 K/mm3 (4.5-10.0) H 06/30/25 20:33 RBC 4.19 M/mm3 (4.2-5.4) L 06/30/25 20:33 Neut % (Auto) 84.6 % (45.5-73.1) H 06/30/25 20:33 Lymph % (Auto) 7.4 % (18.3-44.2) L 06/30/25 20:33 Delta # (Auto) 0.9 K/mm3 (0.1-0.6) H 06/30/25 20:33 Absolute Neuts (auto) 10.2 K/mm3 (1.3-6.7) H 06/30/25 20:33 Sodium 136 mmol/L (137-145) L 06/30/25 20:33 BUN 20 mg/dL (7-17) H 06/30/25 20:33 Urine Ketones 1+ mg/dL (Negative) H 06/30/25 21:46 Ur Blood (Man) 2+ (Negative) H 06/30/25 21:46 Leukocyte Esterase Rfl Trace CHRIS/UL (Negative) H 06/30/25 21:46 Urine RBC 11-20 /hpf (0-2) H 06/30/25 21:46 Most Recent Suicide Severity Rating Suicide Severity Rating NO RISK INDICATED 06/30/25 21:51
--- NOTE | 2025-06-30 23:41 | ADMGEN ---
This patient, Faiza Trimble, was admitted to Medical Room 257-01. Patient/family oriented to hospital policies and general routines including ID bracelet, bed and alarms, visiting hours, pain management, procedures, bathroom and other care routines, personal items, smoking policy, room service/diet, and visiting hours. Information on how to activate the Rapid Response Team has been discussed. Patient/Family are encouraged to report perceived risks to care and to ask questions if they do not understand what they are told or what they should do.
[2025-06-30] MEDS: ACETAMINOPHEN 325 MG TABLET 650 MG PO (23:55)
[2025-07-01] VITALS (13 sets, daily range): BP systolic 93–120; BP diastolic 43–66; PULSE 72–105; RESP 12–20; TEMP 36.2–36.6; O2SAT 93–100
[2025-07-01] MEDS: MORPHINE SULFATE (*CRX) 4 MG/ML INJ IV PUSH ×3 (04:03→18:09)
--- NOTE | 2025-07-01 04:05 | PM.IMHP ---
H&P: HPI History of Present Illness Date/Time: 07/01/25 04:05 Chief Complaint: Left flank pain Narrative: This is a 50-year-old female patient who came to the emergency room with complaint of left flank/lower back pain. The patient has no prior history of any kidney stones. However she has been on a low carb diet since January. She has lost approximately 40 lb. The patient stated that she has some metabolism issue and has some: Cramping at times. She states she has been having this for the last 4 days but just got worse prior to coming to the emergency room. She had a normal bowel movement prior to coming to the emergency room. She denied any urinary symptoms. Her white count was noted to be 12.1. Urine shows 1+ ketones, 2+ urine blood, trace leukocyte esterase, urine rbc's 11-20. CT scan was read as a followingIMPRESSION: 1. Limited noncontrast examination is not optimal to evaluate solid viscera, neoplasms and vascular structures. 2. 5 mm calculus in the proximal left ureter at L2-3 level causing moderately significant left hydronephrosis. 3. Nonspecific mild para-aortic lymphadenopathy as described above. 4. Significant degenerative disc disease at L5-S1 level lumbar spine. Urology has been consulted and ER spoke with the urologist. The patient was given Zofran and morphine in the emergency room IV fluids were initiated as well. The patient is being admitted to observation status on the date of service of 07/01/2025. Review of Systems Constitutional: Constitutional: Reports as per HPI and Reports no additional constitutional complaints Eyes: Eyes: Reports as per HPI and Reports no additional eye complaints ENT: Reports system reviewed and no additional complaints, except as documented and Reports Normal hearing present Cardiovascular: Cardiovascular: Reports no additional cardiovascular complaints Respiratory: Respiratory: Reports as per HPI and Reports no additional respiratory complaints Gastrointestinal: Gastrointestinal: Reports as per HPI and Reports no additional gastrointestinal complaints Genitourinary: Genitourinary: Reports no additional female genitourinary complaints Musculoskeletal: Musculoskeletal: Reports no additional musculoskeletal complaints Integumentary/Breasts: Skin/Breast: Reports system reviewed and no additional complaints, except as docu Neurologic: Reports system reviewed and no additional complaints, except as documented and Reports Normal hearing present Psychiatric: Psychiatric: Reports no additional psychiatric complaints and Reports as per HPI Hematologic/Lymphatic: Hematologic/Lymphatic: Reports no additional hematologic/lymphatic complaints Allergic/Immunologic: Allergic/Immunologic: Reports no additional allergic/immunologic complaints PMF Past Medical History Medical History Depression with anxiety Surgical History Surgical History History of tonsillectomy H/O: hysterectomy Family History Family History Other No significant family history Social History Social History Social History: The patient is and has 3 children. 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 Smoking status: Never smoker Alcohol intake: never Substance use type: does not use Lack of Transportation: No Lack of Food: Never True Current Housing: Decline to Answer Concerned About Future Housing: No Difficulty Paying Gas/Electric Bills: No Difficulty Paying for Meds: No Currently Unemployed: No Education: Bachelor's Degree Difficulty w/ Childcare or Family Care: No Spiritual care concerns: No Meds Home Medications and Allergies Home Medications ?Medication ?Instructions ?Recorded ?Confirmed ?Type buspirone 15 mg tablet 15 mg PO DAILY 06/30/25 07/01/25 History meloxicam 15 mg tablet 15 mg PO DAILY 07/01/25 07/01/25 History sertraline 100 mg tablet 100 mg PO DAILY 07/01/25 07/01/25 History Allergies Allergy/AdvReac Type Severity Reaction Status Date / Time codeine Allergy Unknown HIVES Verified 06/30/25 18:24 Vital Signs Vital Signs - 24 hr 06/30/25 18:34 06/30/25 19:57 06/30/25 19:58 Temperature 98 F Pulse Rate 78 Respiratory Rate 20 Blood Pressure 140/92 H 127/72 Pulse Oximetry 99 99 100 Oxygen Delivery Room Air 06/30/25 20:00 06/30/25 20:01 06/30/25 20:15 Temperature Pulse Rate Respiratory Rate Blood Pressure 121/70 Pulse Oximetry 100 100 100 Oxygen Delivery 06/30/25 20:30 06/30/25 20:45 06/30/25 21:00 Temperature Pulse Rate Respiratory Rate Blood Pressure Pulse Oximetry 100 98 94 Oxygen Delivery 06/30/25 21:15 06/30/25 21:30 06/30/25 21:46 Temperature Pulse Rate Respiratory Rate Blood Pressure Pulse Oximetry 95 92 95 Oxygen Delivery 06/30/25 21:48 06/30/25 22:00 06/30/25 22:01 Temperature Pulse Rate Respiratory Rate Blood Pressure 131/66 121/61 Pulse Oximetry 94 95 Oxygen Delivery 06/30/25 22:15 06/30/25 22:30 06/30/25 22:45 Temperature Pulse Rate Respiratory Rate Blood Pressure Pulse Oximetry 93 93 95 Oxygen Delivery 06/30/25 23:00 06/30/25 23:01 06/30/25 23:50 Temperature 99.1 F 98.4 F Pulse Rate 70 Respiratory Rate 20 Blood Pressure 146/96 H 112/53 L Pulse Oximetry 97 99 98 Oxygen Delivery 06/30/25 23:55 Temperature Pulse Rate Respiratory Rate Blood Pressure Pulse Oximetry Oxygen Delivery Room Air Exam Const: General: cooperative, healthy appearing, comfortable, no acute distress, well developed, awake, Physically active, average body habitus and well nourished Nutritional Appearance: average body habitus and well nourished Orientation/consciousness: oriented to person, oriented to place, oriented to time and patient oriented x3 Limitations: no limitations HENMT: Head: normal to inspection, No palpable skull fracture present, normocephalic, atraumatic and abrasion Ears: hearing grossly normal bilaterally Eyes: General: appearance normal, both eyes and all related structures Alignment and Position: alignment normal Eyelids: eyelids normal Neck: Neck: normal visual inspection, full ROM, no lymphadenopathy, trachea midline and supple Thyroid: thyroid normal Carotids: normal carotid upstroke Lymphatic: no lymphadenopathy noted Chest: Chest palpation & inspection: normal inspection of the chest Resp: Effort & Inspection: normal respiratory effort Auscultation: clear to auscultation bilaterally Percussion: percussion normal Cardio: Palpation: normal PMI Rate: regular rate Rhythm: regular rhythm Heart sounds: S1 normal heart sound present and S2 normal heart sound present Peripheral pulses: Peripheral pulses 2+ throughout GI: Inspection: normal to inspection Percussion: Yes normal to percussion Auscultation: normal bowel sounds Rectal Exam: deferred : General: Yes CVA tenderness on the left Skin: General skin exam: normal color Lesions: no lesions Rashes: no rashes Trauma: no lacerations or abrasions Wounds: no wounds Hair: normal Nails: normal Neuro: General: oriented to person, oriented to place, oriented to time and patient oriented x3 Cranial nerves: Yes Equal, round and reactive pupils present and Yes Normal hearing present Cognition (Neuro): normal cognition Speech: normal speech Gait exam (Neuro): Normal gait present Motor exam (neuro): 5/5 motor strength present throughout Sensory Exam: normal sensation Extrem: General: normal to inspection Right upper extremity: normal to inspection and shoulder/upper arm Left upper extremity: normal to inspection and shoulder/upper arm Right lower extremity: normal to inspection Left lower extremity: normal to inspection Psych: Appearance: grossly normal Mental Status: mental status grossly normal Speech and movement: Normal speech and movement present Affect: normal affect Attitude: cooperative Thought process: Normal thought process present Thought content: Yes Normal thought content present Insight: Good insight present (Psych) Judgement: Good judgement present (Psych) H&P: Results Labs Labs: Short CBC 06/30/25 Range/Units 20:33 WBC 12.1 H (4.5-10.0) K/mm3 Hgb 12.8 (12.0-15.0) g/dL Hct 38.3 (37.0-47.0) % Plt Count 307 (150-375) k/mm3 BMP 06/30/25 20:33 Sodium 136 L Potassium 4.1 Chloride 104 Carbon Dioxide 26 BUN 20 H Creatinine 0.90 Glucose 99 Calcium 9.1 Liver Function 06/30/25 Range/Units 20:33 Total Bilirubin 0.4 (0.2-1.3) mg/dL AST 24 (14-36) U/L ALT 16 (6-35) U/L Alkaline Phosphatase 61 (38-126) U/L Albumin 3.9 (3.5-5.1) g/dL Urine 06/30/25 Range/Units 21:46 Urine Color Yellow (Yellow) Urine Appearance Clear (Clear) Urine pH 5.5 (5.0-9.0) Ur Specific [place] 1.015 (1.001-1.035) Urine Protein Negative (Negative) mg/dL Urine Glucose (UA) Negative (Negative) mg/dL Imaging CT scan - abdomen: Radiologist's impression: Impressions Miscellaneous CT Procedure 06/30/25 19:34 IMPRESSION: 1. Limited noncontrast examination is not optimal to evaluate solid viscera, neoplasms and vascular structures. 2. 5 mm calculus in the proximal left ureter at L2-3 level causing moderately significant left hydronephrosis. 3. Nonspecific mild para-aortic lymphadenopathy as described above. 4. Significant degenerative disc disease at L5-S1 level lumbar spine. Assessment and Plan Assessment and plan (1) Calculus of proximal left ureter: Code(s): N20.1 - Calculus of ureter Status: Acute Assessment and Plan: CT was read as a following Miscellaneous CT Procedure 06/30/25 19:34 IMPRESSION: 1. Limited noncontrast examination is not optimal to evaluate solid viscera, neoplasms and vascular structures. 2. 5 mm calculus in the proximal left ureter at L2-3 level causing moderately significant left hydronephrosis. 3. Nonspecific mild para-aortic lymphadenopathy as described above. 4. Significant degenerative disc disease at L5-S1 level lumbar spine. -Urology has been consulted -continue with IV fluids -continue with morphine and Zofran. The patient stated that her nausea and pain are under control at this point. -strain all urine. -the patient stated that she had been on a low carb diet for the last 4-5 months. We reviewed the studies that indicate that a low carb diet could be the cause of her kidney stone. A low carb diet can deplete the body of calcium causing her to excrete more calcium. Also any sudden weight loss can cause an increase in calcium excretion. A low carb diet also causes acidosis which could also cause calcium excretion. -there is no family history of kidney stones and she has not had any previous kidney stones. -she is currently NPO. -she was empirically started on Rocephin. -monitor renal function daily. (2) Depression with anxiety: Code(s): F41.8 - Other specified anxiety disorders Status: Acute Assessment and Plan: -continue buspirone and sertraline when she is no longer NPO. Quality VTE Prophylaxis VTE prophylaxis: mechanical ordered
[2025-07-01] MEDS: ONDANSETRON INJ 4 MG/2 ML VIAL IV PUSH ×3 (04:09→19:28)
[2025-07-01 05:41] LABS: Hematocrit 36.4 % (37.0-47.0); Hemoglobin 11.9 g/dL (12.0-15.0); Mean Corpuscular HGB Conc 32.7 g/dl (32-36); Mean Corpuscular Hemoglobin 30.1 pg (26-34); Mean Corpuscular Volume 91.9 fl (80-100); Platelet Count Result 261 k/mm3 (150-375); Red Blood Count 3.96 M/mm3 (4.2-5.4); White Blood Count 8.3 K/mm3 (4.5-10.0)
[2025-07-01] MEDS: cefTRIAXone 1 GM in SODIUM CHLORIDE 0.9% IV 50 ML 100 ML IVPB (05:46)
[2025-07-01 06:07] LABS: Anion Gap 3 mmol/L (4-12); Blood Urea Nitrogen 16 mg/dL (7-17); Calcium 8.6 mg/dL (8.4-10.2); Carbon Dioxide 26 mmol/L (22-30); Chloride 106 mmol/L (98-107); Estimated CRCL calculation 99 ml/min; Estimated Glomerular Filt Rate > 60; Glucose 87 mg/dL (65-110); Potassium 3.7 mmol/L (3.4-5.0); Sodium 135 mmol/L (137-145)
[2025-07-01] MEDS: LACTATED RINGERS 1,000 ML 125 ML IV CONT ×2 (06:43→18:16)
--- NOTE | 2025-07-01 07:44 | P.PNIM_ITS ---
Progress Note: A&P Assessment and Plan (1) Calculus of proximal left ureter: Code(s): N20.1 - Calculus of ureter Status: Acute Assessment and Plan: CT abdomen/pelvis: 5 mm calculus in the proximal left ureter at L2-3 level causing moderately significant left hydronephrosis. - IV fluids: LR 125 ml/hr - analgesics and antiemetics: morphine and Zofran. - monitor I/O, strain all urine. - diet: NPO for procedure - renal function remains wnl, continue to monitor - empirically started on Rocephin on 06/30 - Urology consulted plan for cystoscopy with possible left stone extraction and stent placement today with Dr. Rose (2) Depression with anxiety: Code(s): F41.8 - Other specified anxiety disorders Status: Acute Assessment and Plan: -continue buspirone and sertraline when she is no longer NPO. Time Spent With Patient Time with patient: 25 - 35 minutes Subjective Date/time seen: 07/01/25 07:44 Interval history: 50-year-old female patient with past medical history of depression/anxiety who presents to the hospital with complaint of left flank/lower back pain. Patient lying comfortably in bed. She continues to endorse pain/discomfort to the left flank and left lower quadrant but states that this is well controlled on the current regimen. She has no other complaints denying chest pain, shortness a breath, palpitations, nausea/vomiting. Review of Systems Review of Systems: All systems reviewed & are unremarkable except as noted in HPI and below Exam Narrative: AF HR 74 RR 18 SPO2 93 BP 97/56 General: female in no acute respiratory distress who is nontoxic appearing, lying semi recumbent in bed. HEENT: Normocephalic. Atraumatic. Extraocular movement intact. Sclera clear and anicteric. No facial asymmetry. Chest: Lungs are clear to auscultation bilaterally. No wheezes or crackles. CV: Heart was regular rate and rhythm. Abd: Abdomen was soft. Tender to left lower quadrant without guarding. Left CVA tenderness. Nondistended. Positive bowel sounds. Neuro: Patient is alert. Speech is clear. Objective Data Vital Signs Vital Signs: Vital Signs - 24 hr 06/30/25 18:34 06/30/25 19:57 06/30/25 19:58 Temperature 98 F Pulse Rate 78 Respiratory Rate 20 Blood Pressure 140/92 H 127/72 Pulse Oximetry 99 99 100 Oxygen Delivery Room Air 06/30/25 20:00 06/30/25 20:01 06/30/25 20:15 Temperature Pulse Rate Respiratory Rate Blood Pressure 121/70 Pulse Oximetry 100 100 100 Oxygen Delivery 06/30/25 20:30 06/30/25 20:45 06/30/25 21:00 Temperature Pulse Rate Respiratory Rate Blood Pressure Pulse Oximetry 100 98 94 Oxygen Delivery 06/30/25 21:15 06/30/25 21:30 06/30/25 21:46 Temperature Pulse Rate Respiratory Rate Blood Pressure Pulse Oximetry 95 92 95 Oxygen Delivery 06/30/25 21:48 06/30/25 22:00 06/30/25 22:01 Temperature Pulse Rate Respiratory Rate Blood Pressure 131/66 121/61 Pulse Oximetry 94 95 Oxygen Delivery 06/30/25 22:15 06/30/25 22:30 06/30/25 22:45 Temperature Pulse Rate Respiratory Rate Blood Pressure Pulse Oximetry 93 93 95 Oxygen Delivery 06/30/25 23:00 06/30/25 23:01 06/30/25 23:50 Temperature 99.1 F 98.4 F Pulse Rate 70 Respiratory Rate 20 Blood Pressure 146/96 H 112/53 L Pulse Oximetry 97 99 98 Oxygen Delivery 06/30/25 23:55 07/01/25 05:56 Temperature 97.5 F L Pulse Rate 74 Respiratory Rate 18 Blood Pressure 97/56 L Pulse Oximetry 93 Oxygen Delivery Room Air Intake/Output Intake/Output: Intake & Output 06/28/25 06/29/25 06/30/25 07/01/25 23:59 23:59 23:59 23:59 Intake Total 1050 Balance 1050 Meds/Results Medications: Active Medications Generic Name Dose Route Start Last Admin Trade Name Freq PRN Reason Stop Dose Admin Acetaminophen 650 mg 06/30/25 22:16 06/30/25 23:55 Acetaminophen 325 Mg Tablet PO 650 mg Q4H PRN Administration Mild Pain (1-3) or Fever Lactated Ringer's 1,000 mls @ 125 mls/hr 06/30/25 22:20 07/01/25 06:43 Lr - Lactated Ringers Iv IV CONT 125 mls/hr .Q8H CALLI Administration Ceftriaxone Sodium 1 gm/ 50 mls @ 100 mls/hr 07/01/25 05:00 07/01/25 06:16 Sodium Chloride IVPB Infused Q24H CALLI Infusion Morphine Sulfate 4 mg 06/30/25 22:16 07/01/25 04:03 Morphine Sulfate (*Crx) 4 Mg/Ml Inj IV PUSH 4 mg Q2H PRN Administration Pain Rated 7-10 Ondansetron HCl 4 mg 06/30/25 22:16 07/01/25 04:09 Ondansetron Inj 4 Mg/2 Ml Vial IV PUSH 4 mg Q4H PRN Administration Nausea Radiology Results: ITS Impressions Miscellaneous CT Procedure 06/30/25 19:34 IMPRESSION: 1. Limited noncontrast examination is not optimal to evaluate solid viscera, neoplasms and vascular structures. 2. 5 mm calculus in the proximal left ureter at L2-3 level causing moderately significant left hydronephrosis. 3. Nonspecific mild para-aortic lymphadenopathy as described above. 4. Significant degenerative disc disease at L5-S1 level lumbar spine. Labs Labs: Laboratory Results - last 24 hr 06/30/25 06/30/25 07/01/25 20:33 21:46 04:52 WBC 12.1 H 8.3 RBC 4.19 L 3.96 L Hgb 12.8 11.9 L Hct 38.3 36.4 L MCV 91.4 91.9 MCH 30.5 30.1 MCHC 33.4 32.7 RDW 13.8 13.7 Plt Count 307 261 MPV 9.3 9.8 Immature Gran % (Auto) 0.2 Neut % (Auto) 84.6 H Lymph % (Auto) 7.4 L [place] % (Auto) 7.3 Eos % (Auto) 0.2 Baso % (Auto) 0.3 Lymph # (Auto) 0.90 [place] # (Auto) 0.9 H Eos # (Auto) 0.0 Baso # (Auto) 0.0 Abs Immat Gran (auto) 0.03 Absolute Neuts (auto) 10.2 H Absolute Nucleated RBC 0.000 Nucleated RBC % 0.0 Sodium 136 L 135 L Potassium 4.1 3.7 Chloride 104 106 Carbon Dioxide 26 26 Anion Gap 6 3 L BUN 20 H 16 Creatinine 0.90 0.77 Estim Creat Clear Calc 84 99 Estimated GFR > 60 > 60 Glucose 99 87 Lactic Acid 0.5 L Calcium 9.1 8.6 Total Bilirubin 0.4 AST 24 ALT 16 Alkaline Phosphatase 61 Total Protein 6.9 Albumin 3.9 Urine Color Yellow Urine Appearance Clear Urine pH 5.5 Ur Specific [place] 1.015 Urine Protein Negative Urine Glucose (UA) Negative Urine Ketones 1+ H Ur Blood (Man) 2+ H Urine Nitrate Negative Urine Bilirubin Negative Urine Urobilinogen 0.2 Leukocyte Esterase Rfl Trace H Urine RBC 11-20 H Urine WBC 0-5 Ur Squamous Epith Cells Occasional Urine Bacteria Rare Urine Casts 0-2 Quality VTE Prophylaxis VTE prophylaxis: mechanical ordered
[2025-07-01] MEDS: ACETAMINOPHEN 325 MG TABLET 650 MG PO (09:10)
--- NOTE | 2025-07-01 10:57 | WPDURCON ---
Assessment and Plan Assessment and plan (1) Calculus of proximal left ureter: Code(s): N20.1 - Calculus of ureter Status: Acute Plan Ms. Trimble is a 50 year-old first time stone former with 5mm proximal left ureteral stone. Discussed the natural course of ureteral stone passage up to 4-6 weeks, especially with proximal stones. She desires treatment of her stone. Recommend left ureteroscopic stone extraction. Discussed risks of the procedure including bleeding, infection, ureteral injury/stricture, need for additional procedures, stent placement only if there is evidence of infection or in the case of intability to access the ureter and need for dilation. We discussed stent symptoms and ways to mitigate. We also discussed trial of stone passage. She understands the risks and wishes to proceed. All questions were answered. Urology Consult Note HPI Date Seen: 07/01/25 Requesting Physician: Jason Lyon MD Primary Care Provider: Bakari Pickering, Consult Narrative Narrative: Faiza Trimble is a 50 year old female with 3 day history of nausea, vomiting and left flank pain that gradually increased then intensified prior to presentation. CT shows a 5mm proximal left ureteral stone. She denies fever but endorses chills, afebrile during hospitalization. Ua is not concerning for infection, urine culture pending, on ceftriaxone empirically, last dose completed at 6am. Her pain and nausea have now resolved. Serum creatinine and WBC are wnl. She has had no prior stone episodes, no family history of urolithiasis. Review of Systems Constitutional: Constitutional: Reports as per HPI ENT: Reports system reviewed and no additional complaints, except as documented Respiratory: Respiratory: Reports no additional respiratory complaints Genitourinary: Comments: No frequency, urgency, dysuria, hematuria Musculoskeletal: Musculoskeletal: Reports no additional musculoskeletal complaints Psychiatric: Psychiatric: Reports no additional psychiatric complaints REPLACED BY [facility] Past Medical History Medical History (Updated 07/01/25 @ 04:12 by Carlotta Braga APRN) Depression with anxiety Surgical History Surgical History History of tonsillectomy H/O: hysterectomy Family History Family History Other No significant family history Social History Social History Social History: The patient is and has 3 children. 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 Smoking status: Never smoker Alcohol intake: never Substance use type: does not use Lack of Transportation: No Lack of Food: Never True Current Housing: Decline to Answer Concerned About Future Housing: No Difficulty Paying Gas/Electric Bills: No Difficulty Paying for Meds: No Currently Unemployed: No Education: Bachelor's Degree Difficulty w/ Childcare or Family Care: No Spiritual care concerns: No Meds Home Medications and Allergies Home Medications ?Medication ?Instructions ?Recorded ?Confirmed ?Type buspirone 15 mg tablet 15 mg PO DAILY 06/30/25 07/01/25 History meloxicam 15 mg tablet 15 mg PO DAILY 07/01/25 07/01/25 History sertraline 100 mg tablet 100 mg PO DAILY 07/01/25 07/01/25 History Allergies Allergy/AdvReac Type Severity Reaction Status Date / Time codeine Allergy Unknown HIVES Verified 06/30/25 18:24 Vital Signs Vital Signs - 24 hr 06/30/25 18:34 06/30/25 19:57 06/30/25 19:58 Temperature 36.6 C Pulse Rate 78 Respiratory Rate 20 Blood Pressure 140/92 H 127/72 Pulse Oximetry 99 99 100 Oxygen Delivery Room Air 06/30/25 20:00 06/30/25 20:01 06/30/25 20:15 Temperature Pulse Rate Respiratory Rate Blood Pressure 121/70 Pulse Oximetry 100 100 100 Oxygen Delivery 06/30/25 20:30 06/30/25 20:45 06/30/25 21:00 Temperature Pulse Rate Respiratory Rate Blood Pressure Pulse Oximetry 100 98 94 Oxygen Delivery 06/30/25 21:15 06/30/25 21:30 06/30/25 21:46 Temperature Pulse Rate Respiratory Rate Blood Pressure Pulse Oximetry 95 92 95 Oxygen Delivery 06/30/25 21:48 06/30/25 22:00 06/30/25 22:01 Temperature Pulse Rate Respiratory Rate Blood Pressure 131/66 121/61 Pulse Oximetry 94 95 Oxygen Delivery 06/30/25 22:15 06/30/25 22:30 06/30/25 22:45 Temperature Pulse Rate Respiratory Rate Blood Pressure Pulse Oximetry 93 93 95 Oxygen Delivery 06/30/25 23:00 06/30/25 23:01 06/30/25 23:50 Temperature 37.3 C 36.9 C Pulse Rate 70 Respiratory Rate 20 Blood Pressure 146/96 H 112/53 L Pulse Oximetry 97 99 98 Oxygen Delivery 06/30/25 23:55 07/01/25 05:56 07/01/25 08:00 Temperature 36.4 C L Pulse Rate 74 74 Respiratory Rate 18 18 Blood Pressure 97/56 L Pulse Oximetry 93 93 Oxygen Delivery Room Air Room Air Exam Const: General: comfortable and no acute distress HENMT: Face/Nose/Sinus: Normal nares present Mouth: Yes moist mucous membranes abnormal Eyes: General: appearance normal, both eyes and all related structures Sclera: sclerae normal Resp: Effort & Inspection: normal respiratory effort GI: Other: Soft, non tender, non distended : Other: No CVAT Skin: General skin exam: normal color Neuro: Speech: normal speech Motor exam (neuro): Normal motor muscle tone present throughout Sensory Exam: normal sensation Extrem: General: normal to inspection Psych: Speech and movement: Normal speech and movement present Affect: normal affect Results Labs 07/01/25 04:52 07/01/25 04:52 Labs: Short CBC 06/30/25 07/01/25 Range/Units 20:33 04:52 WBC 12.1 H 8.3 (4.5-10.0) K/mm3 Hgb 12.8 11.9 L (12.0-15.0) g/dL Hct 38.3 36.4 L (37.0-47.0) % Plt Count 307 261 (150-375) k/mm3 [facility] 06/30/25 07/01/25 20:33 04:52 Sodium 136 L 135 L Potassium 4.1 3.7 Chloride 104 106 Carbon Dioxide 26 26 BUN 20 H 16 Creatinine 0.90 0.77 Glucose 99 87 Calcium 9.1 8.6 Liver Function 06/30/25 Range/Units 20:33 Total Bilirubin 0.4 (0.2-1.3) mg/dL AST 24 (14-36) U/L ALT 16 (6-35) U/L Alkaline Phosphatase 61 (38-126) U/L Albumin 3.9 (3.5-5.1) g/dL Urine 06/30/25 Range/Units 21:46 Urine Color Yellow (Yellow) Urine Appearance Clear (Clear) Urine pH 5.5 (5.0-9.0) Ur Specific [place] 1.015 (1.001-1.035) Urine Protein Negative (Negative) mg/dL Urine Glucose (UA) Negative (Negative) mg/dL Imaging My impression: Left proximal ureteral stone
--- NOTE | 2025-07-01 11:09 | WPDHPUPDATE1 ---
History and Physical Update Update Date/Time: 07/01/25 11:09 History and Physical has been reviewed, including an updated exam of the patient. There are NO changes in the patient's condition. Risks, benefits, and alternatives have been discussed and questions answered. Patient agrees to proceed with procedure.
--- NOTE | 2025-07-01 11:50 | WPDANESEPPF ---
Anes - Initial Pre Proc Eval Procedure: Operation Date: 07/01/25 12:00 Proposed Procedures p Cysto, RPG, Stone Ext, Stent Placement(Left) - Mima Rose MD Date/Time: 07/01/25 11:50 Surgeon: Jason Lyon MD Pre Op Diagnosis: Obstructing kidney stone w/ hydro, intractable skip Patient Data Age: 50 Gender: F Height: 1.68 m Weight: 113.2 kg Last Vital Signs Temp 97.5 F L 07/01/25 05:56 Pulse 74 07/01/25 08:00 Resp 18 07/01/25 08:00 BP 97/56 L 07/01/25 05:56 Pulse Ox 93 07/01/25 08:00 O2 Del Method Room Air 07/01/25 08:00 Allergies Allergy/AdvReac Type Severity Reaction Status Date / Time codeine Allergy Unknown HIVES Verified 06/30/25 18:24 Home Medications ?Medication ?Instructions ?Recorded ?Confirmed ?Type buspirone 15 mg tablet 15 mg PO DAILY 06/30/25 07/01/25 History meloxicam 15 mg tablet 15 mg PO DAILY 07/01/25 07/01/25 History sertraline 100 mg tablet 100 mg PO DAILY 07/01/25 07/01/25 History Laboratory Tests 06/30/25 06/30/25 07/01/25 20:33 21:46 04:52 WBC 12.1 H K/mm3 8.3 K/mm3 (4.5-10.0) (4.5-10.0) RBC 4.19 L M/mm3 3.96 L M/mm3 (4.2-5.4) (4.2-5.4) Hgb 12.8 g/dL 11.9 L g/dL (12.0-15.0) (12.0-15.0) Hct 38.3 % 36.4 L % (37.0-47.0) (37.0-47.0) MCV 91.4 fl 91.9 fl (80-100) (80-100) MCH 30.5 pg 30.1 pg (26-34) (26-34) MCHC 33.4 g/dl 32.7 g/dl (32-36) (32-36) RDW 13.8 % 13.7 % (11.5-14.5) (11.5-14.5) Plt Count 307 k/mm3 261 k/mm3 (150-375) (150-375) MPV 9.3 fl 9.8 fl (7.4-10.4) (7.4-10.4) Immature Gran % (Auto) 0.2 % (0-0.5) Neut % (Auto) 84.6 H % (45.5-73.1) Lymph % (Auto) 7.4 L % (18.3-44.2) [place] % (Auto) 7.3 % (2.6-8.5) Eos % (Auto) 0.2 % (0-4.4) Baso % (Auto) 0.3 % (0.2-1.2) Lymph # (Auto) 0.90 K/mm3 (0.9-3.2) [place] # (Auto) 0.9 H K/mm3 (0.1-0.6) Eos # (Auto) 0.0 K/mm3 (0-0.3) Baso # (Auto) 0.0 K/mm3 (0.0-0.1) Abs Immat Gran (auto) 0.03 K/mm3 (0.00-0.031) Absolute Neuts (auto) 10.2 H K/mm3 (1.3-6.7) Absolute Nucleated RBC 0.000 K/mm3 (0.0-0.012) Nucleated RBC % 0.0 % (0.0-0.2) Sodium 136 L mmol/L 135 L mmol/L (137-145) (137-145) Potassium 4.1 mmol/L 3.7 mmol/L (3.4-5.0) (3.4-5.0) Chloride 104 mmol/L 106 mmol/L (98-107) (98-107) Carbon Dioxide 26 mmol/L 26 mmol/L (22-30) (22-30) Anion Gap 6 mmol/L 3 L mmol/L (4-12) (4-12) BUN 20 H mg/dL 16 mg/dL (7-17) (7-17) Creatinine 0.90 mg/dL 0.77 mg/dL (0.7-1.0) (0.7-1.0) Estim Creat Clear Calc 84 ml/min 99 ml/min Estimated GFR > 60 > 60 (59 - ) (59 - ) Glucose 99 mg/dL 87 mg/dL (65-110) (65-110) Lactic Acid 0.5 L mmol/L (0.7-2.0) Calcium 9.1 mg/dL 8.6 mg/dL (8.4-10.2) (8.4-10.2) Total Bilirubin 0.4 mg/dL (0.2-1.3) AST 24 U/L (14-36) ALT 16 U/L (6-35) Alkaline Phosphatase 61 U/L (38-126) Total Protein 6.9 g/dL (6.3-8.2) Albumin 3.9 g/dL (3.5-5.1) Urine Color Yellow (Yellow) Urine Appearance Clear (Clear) Urine pH 5.5 (5.0-9.0) Ur Specific [place] 1.015 (1.001-1.035) Urine Protein Negative mg/dL (Negative) Urine Glucose (UA) Negative mg/dL (Negative) Urine Ketones 1+ H mg/dL (Negative) Ur Blood (Man) 2+ H (Negative) Urine Nitrate Negative (Negative) Urine Bilirubin Negative (Negative) Urine Urobilinogen 0.2 mg/dL (<2.0) Leukocyte Esterase Rfl Trace H CHRIS/UL (Negative) Urine RBC 11-20 H /hpf (0-2) Urine WBC 0-5 /hpf (0-3) Ur Squamous Epith Cells Occasional /hpf (Few) Urine Bacteria Rare /hpf Urine Casts 0-2 Patient hx anesthesia problems: none Family hx anesthesia problems: none Results Review: All pre-operative results and documents have been reviewed as part of the pre-operative evaluation. [facility] Past Medical History Medical History Depression with anxiety Surgical History Surgical History History of tonsillectomy H/O: hysterectomy Family History Family History Other No significant family history Social History Social History Social History: The patient is and has 3 children. 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 Smoking status: Never smoker Alcohol intake: never Substance use type: does not use Lack of Transportation: No Lack of Food: Never True Current Housing: Decline to Answer Concerned About Future Housing: No Difficulty Paying Gas/Electric Bills: No Difficulty Paying for Meds: No Currently Unemployed: No Education: Bachelor's Degree Difficulty w/ Childcare or Family Care: No Spiritual care concerns: No Anes - Eval Final PreProcedure Day of Procedure 07/01/25 11:50 Patient weight: morbidly obese Lungs: normal air movement Airway: Mallampati scale class II Neurological: alert and oriented Last oral intake: >/= 8 hours ASA classification: III Emergent: no Anesthetic plan: proceed Anesthesia type and monitoring: general LMA and standard monitoring Results Review: All pre-operative results and documents have been reviewed as part of the pre-operative evaluation. BMI 40,, pt has lost 40 pounds in last 6 months intentionally, can walk 1-2 fos, no cp or sob. Informed Consent: The patient's anesthetic plan and its attendant risks and benefits were discussed with the patient/family/POA. Questions were solicited and answers provided to the satisfaction of the patient/family/POA.
[2025-07-01] MEDS: ceFAZolin 2 GM in SODIUM CHLORIDE 0.9% IV 50 ML 100 ML IVPB (11:57)
[2025-07-01] MEDS: LACTATED RINGERS 1,000 ML 30 ML IV CONT ×2 (13:23→13:24)
--- NOTE | 2025-07-01 13:24 | S_PTH ---
PATIENT: Faiza Trimble LOC: [id number] U#:[id number] AGE/SX: 50/F ROOM: 257 RE06/30/[address]: Nikolai feldman Oca, MD : [id number] BED: 01 DIS: 07/02/2025 SPEC #: [id number] RECD: 07/03/25 08:21 STATUS: LUIS COHEN #: [id number] BERTA: 07/01/25 13:[address]: Mima Rose DEPT: [facility] Surgical RECD BY: Marivel Abarca ENTERED: 07/03/25 08:21 SP TYPE: Surgical OTHR DR: Bakari Pickering, FLORA Swanson MD Tissues: A - Stone Procedures: Gross Exam Level 1 Crystalline Analysis
--- NOTE | 2025-07-01 13:46 | P.OP_ITS ---
Procedure Note - Detailed Date of Procedure 07/01/25 Pre-op Diagnosis Obstructing left ureteral stone hydronephrosis, intractable pain Post-op Diagnosis Same Procedure Performed Cystoscopy, left retrograde pyelogram, left ureteroscopy, laser lithotripsy, stone extraction, stent placement Surgeon Mima Rose MD Anesthesia General Indications Left ureteral stone, flank pain, nausea, vomiting Findings Proximal left ureteral stone, no hydronephrosis Description of Procedure The patient was correctly identified informed consent was obtained. She was taken to the operating placed in the dorsal lithotomy position. She was given intravenous antibiotics within 1 hour of the procedure start bilateral SCDs were placed for DVT prophylaxis. She was prepped and draped in the standard fashion. Rigid cystoscopy was performed. The bladder mucosa appeared normal. There were no tumors or other abnormalities noted. The left ureteral orifice was identified and semi rigid ureteroscopy was performed. The distal ureter was noted to be narrow and therefore a Sensor guidewire was passed to the kidney followed by 5 [place] open-ended catheter and gently dilated with 8/10 [place] coaxial dilators. Prescribed pyelogram was performed and this revealed no hydronephrosis. Next, a flexible ureteroscope was passed over the guidewire and the stone was noted in the proximal ureter. The stone migrated into the upper pole and was primarily dusted, then pop dusted with Holmium laser. A medical center representative stone fragment was obtained for analysis with basket extraction. Under direct vision a 6 [place] by 24 cm stent was placed however this was too short. The same occurred with stent lengths of 26 and 28 cm. Therefore a 4.8 [place] by variable length stent was placed under direct vision. The bladder was then drained. The patient tolerated the procedure well. Implants 4.8Fr ureteral stent Urine Output 200 Drains No Packing No Pathology Yes (Stone for analysis) Complications No immediate complications Condition Stable Disposition PACU
[2025-07-01] MEDS: fentaNYL CITRATE INJ (*CRX) 100 MCG/2 ML VIAL 25 MCG IV PUSH ×4 (14:00→14:44)
--- NOTE | 2025-07-01 14:01 | SUR.PHASEI ---
OR staff found a bag of pills in patient's bed. Dr. Rose and Gum Cook aware.
[2025-07-02] MEDS: MORPHINE SULFATE (*CRX) 4 MG/ML INJ IV PUSH (01:54)
[2025-07-02] MEDS: LACTATED RINGERS 1,000 ML 125 ML IV CONT (01:54)
[2025-07-02] MEDS: ACETAMINOPHEN 325 MG TABLET 650 MG PO (04:37)
[2025-07-02] MEDS: cefTRIAXone 1 GM in SODIUM CHLORIDE 0.9% IV 50 ML 100 ML IVPB (04:40)
[2025-07-02 05:19] VITALS: BP 118/76; PULSE 85; RESP 20; TEMP 36.6; O2SAT 98
[2025-07-02 05:42] LABS: Hematocrit 35.3 % (37.0-47.0); Hemoglobin 11.4 g/dL (12.0-15.0); Mean Corpuscular HGB Conc 32.3 g/dl (32-36); Mean Corpuscular Hemoglobin 30.4 pg (26-34); Mean Corpuscular Volume 94.1 fl (80-100); Platelet Count Result 262 k/mm3 (150-375); Red Blood Count 3.75 M/mm3 (4.2-5.4); White Blood Count 6.9 K/mm3 (4.5-10.0)
[2025-07-02 06:02] LABS: Chloride 107 mmol/L (98-107); Potassium 4.4 mmol/L (3.4-5.0); Sodium 136 mmol/L (137-145)
[2025-07-02 06:28] LABS: Anion Gap 1 mmol/L (4-12); Blood Urea Nitrogen 8 mg/dL (7-17); Calcium 8.4 mg/dL (8.4-10.2); Carbon Dioxide 28 mmol/L (22-30); Estimated CRCL calculation 107 ml/min; Estimated Glomerular Filt Rate > 60; Glucose 104 mg/dL (65-110)
[2025-07-02] MEDS: SERTRALINE HCL 50 MG TABLET 100 MG PO (08:23)
[2025-07-02] MEDS: MELOXICAM 7.5 MG TABLET 15 MG PO (08:23)
--- NOTE | 2025-07-02 10:10 | WPDUROPN2 ---
Progress Note: A&P Assessment and Plan (1) Left ureteral stone: Code(s): N20.1 - Calculus of ureter Status: Acute Plan POD 1 status post left URS with stone extraction, discussed expected stent symptoms and ways to mitigate Pain control with Ibuprofen & Tylenol, oxycodone (4 total) in case of breakthrough pain Ditropan 5mg po TID prn bladder spasms, discussed side effects, advised to use sparingly as she reports constipation Tamsulosin 0.4mg daily for stent pain, discussed off label use, may help with ureteral discomfort Colace 100mg BID for constipation Stent removal in 1-2 weeks; will contact patient to schedule. Subjective Subjective Date/Time Seen: 07/02/25 10:10 Interval history: Ms. Trimble is POD1 status post left ureteroscopic stone extraction. She is doing very well, tolerating stent with mild cramping after voiding, otherwise no flank pain, fever, or nausea. Exam Const: General: comfortable and no acute distress HENMT: Face/Nose/Sinus: Normal nares present Mouth: Yes moist mucous membranes Eyes: General: appearance normal, both eyes and all related structures EOM: EOMs intact bilaterally Resp: Effort & Inspection: normal respiratory effort GI: GI Palp: Yes Soft to palpation Skin: General skin exam: normal color Neuro: Speech: normal speech Sensory Exam: normal sensation Extrem: General: normal to inspection Psych: Mental Status: mental status grossly normal Affect: normal affect Objective Data Vital Signs Vital Signs: Vital Signs - 24 hr 07/01/25 13:23 07/01/25 13:27 07/01/25 13:35 Temperature 36.2 C L Pulse Rate 84 105 H 96 Respiratory Rate 12 14 16 Blood Pressure 94/54 L 93/56 L 111/66 Pulse Oximetry 100 100 100 Oxygen Delivery Simple Face Mask Simple Face Mask Simple Face Mask Oxygen Flow Rate 6 8 8 07/01/25 13:50 07/01/25 14:05 07/01/25 14:20 Temperature Pulse Rate 81 96 87 Respiratory Rate 14 12 16 Blood Pressure 105/65 100/64 106/61 Pulse Oximetry 100 98 96 Oxygen Delivery Simple Face Mask Room Air Room Air Oxygen Flow Rate 8 07/01/25 14:35 07/01/25 14:45 07/01/25 15:01 Temperature 36.3 C L Pulse Rate 85 82 79 Respiratory Rate 14 16 16 Blood Pressure 103/61 100/59 L 111/63 Pulse Oximetry 98 96 99 Oxygen Delivery Room Air Room Air Oxygen Flow Rate 07/01/25 15:24 07/01/25 19:35 07/01/25 20:18 Temperature 36.6 C 36.4 C L Pulse Rate 72 82 Respiratory Rate 18 20 Blood Pressure 120/62 107/43 L Pulse Oximetry 98 99 Oxygen Delivery Room Air Oxygen Flow Rate 07/02/25 05:19 Temperature 36.6 C Pulse Rate 85 Respiratory Rate 20 Blood Pressure 118/76 Pulse Oximetry 98 Oxygen Delivery Oxygen Flow Rate Intake/Output Intake/Output: Intake & Output 06/29/25 06/30/25 07/01/25 07/02/25 23:59 23:59 23:59 23:59 Intake Total 2840 1744.2 Output Total 650 1400 Balance 2190 344.2 Meds/Results Medications: Active Medications Generic Name Dose Route Start Last Admin Trade Name Freq PRN Reason Stop Dose Admin Acetaminophen 650 mg 06/30/25 22:16 07/02/25 04:37 Acetaminophen 325 Mg Tablet PO 650 mg Q4H PRN Administration Mild Pain (1-3) or Fever Buspirone HCl 15 mg 07/02/25 09:00 07/02/25 08:23 Buspirone Hcl 5 Mg Tablet PO 15 mg DAILY CALLI Administration Lactated Ringer's 1,000 mls @ 125 mls/hr 06/30/25 22:20 07/02/25 01:54 Lr - Lactated Ringers Iv IV CONT 125 mls/hr .Q8H CALLI Administration Ceftriaxone Sodium 1 gm/ 50 mls @ 100 mls/hr 07/01/25 05:00 07/02/25 05:10 Sodium Chloride IVPB Infused Q24H CALLI Infusion Meloxicam 15 mg 07/02/25 09:00 07/02/25 08:23 Meloxicam 7.5 Mg Tablet PO 15 mg DAILY CALLI Administration Morphine Sulfate 4 mg 06/30/25 22:16 07/02/25 01:54 Morphine Sulfate (*Crx) 4 Mg/Ml Inj IV PUSH 4 mg Q2H PRN Administration Pain Rated 7-10 Ondansetron HCl 4 mg 06/30/25 22:16 07/01/25 19:28 Ondansetron Inj 4 Mg/2 Ml Vial IV PUSH 4 mg Q4H PRN Administration Nausea Sertraline HCl 100 mg 07/02/25 09:00 07/02/25 08:23 Sertraline Hcl 50 Mg Tablet PO 100 mg DAILY CALLI Administration Radiology Results: ITS Impressions Miscellaneous CT Procedure 06/30/25 19:34 IMPRESSION: 1. Limited noncontrast examination is not optimal to evaluate solid viscera, neoplasms and vascular structures. 2. 5 mm calculus in the proximal left ureter at L2-3 level causing moderately significant left hydronephrosis. 3. Nonspecific mild para-aortic lymphadenopathy as described above. 4. Significant degenerative disc disease at L5-S1 level lumbar spine. Labs Labs: Laboratory Results - last 24 hr 07/02/25 05:30 WBC 6.9 RBC 3.75 L Hgb 11.4 L Hct 35.3 L MCV 94.1 MCH 30.4 MCHC 32.3 RDW 13.9 Plt Count 262 MPV 9.4 Sodium 136 L Potassium 4.4 Chloride 107 Carbon Dioxide 28 Anion Gap 1 L BUN 8 D Creatinine 0.71 Estim Creat Clear Calc 107 Estimated GFR > 60 Glucose 104 Lactic Acid 1.0 Calcium 8.4
--- NOTE | 2025-07-02 11:03 | P.DS_ITS ---
DS: Admitting Diagnosis Discharge Date 07/02 Admitting Diagnosis left flank pain DS: Discharge Diagnosis Discharge Diagnosis (1) Calculus of proximal left ureter: Code(s): N20.1 - Calculus of ureter Status: Acute (2) Depression with anxiety: Code(s): F41.8 - Other specified anxiety disorders Status: Acute DS: Summary Hospital Course Hospital Course: 50-year-old female patient with past medical history of depression/anxiety who presents to the hospital with complaint of left flank/lower back pain. CT was read as a following Miscellaneous CT Procedure 06/30/25 19:34 IMPRESSION: 1. Limited noncontrast examination is not optimal to evaluate solid viscera, neoplasms and vascular structures. 2. 5 mm calculus in the proximal left ureter at L2-3 level causing moderately significant left hydronephrosis. 3. Nonspecific mild para-aortic lymphadenopathy as described above. 4. Significant degenerative disc disease at L5-S1 level lumbar spine. Urology was consulted. Cystoscopy, left retrograde pyelogram, left ureteroscopy, laser lithotripsy, stone extraction, stent placement with DR rose 07/01. -continue with morphine and Zofran. The patient stated that her nausea and pain are under control at this point. -strain all urine. -the patient stated that she had been on a low carb diet for the last 4-5 months. We reviewed the studies that indicate that a low carb diet could be the cause of her kidney stone. A low carb diet can deplete the body of calcium causing her to excrete more calcium. Also any sudden weight loss can cause an increase in calcium excretion. A low carb diet also causes acidosis which could also cause calcium excretion. -there is no family history of kidney stones and she has not had any previous kidney stones. -she was empirically started on Rocephin. She was seen per urology and cleared for discharge today. Status at Discharge Functional status at discharge: independent ambulation Overall status at discharge: patient is progressing back to baseline Time Spent with Patient Time attestation: Total time spent providing and/or coordinating discharge services: Time spent: Greater than 30 minutes Exam Narrative: alert, calm and comfortable General: female in no acute respiratory distress who is nontoxic appearing, lying semi recumbent in bed. HEENT: Normocephalic. Atraumatic. Extraocular movement intact. Sclera clear and anicteric. No facial asymmetry. Chest: Lungs are clear to auscultation bilaterally. No wheezes or crackles. CV: Heart was regular rate and rhythm. Abd: Abdomen was soft. Tender to left lower quadrant without guarding. Left CVA tenderness. Nondistended. Positive bowel sounds. Neuro: Patient is alert. Speech is clear. Const: General: cooperative, healthy appearing, comfortable, no acute distress, well developed, awake, Physically active, average body habitus and well nourished Nutritional Appearance: average body habitus and well nourished Orientation/consciousness: oriented to person, oriented to place, oriented to time and patient oriented x3 Limitations: no limitations HENMT: Head: normal to inspection, No palpable skull fracture present, normocephalic, atraumatic and abrasion Ears: hearing grossly normal bilaterally Eyes: General: appearance normal, both eyes and all related structures Alignment and Position: alignment normal Eyelids: eyelids normal Pupils: Equal, round and reactive pupils present Neck: Neck: normal visual inspection, full ROM, no lymphadenopathy, trachea midline and supple Thyroid: thyroid normal Carotids: normal carotid upstroke Lymphatic: no lymphadenopathy noted Chest: Chest palpation & inspection: normal inspection of the chest Resp: Effort & Inspection: normal respiratory effort Auscultation: clear to auscultation bilaterally Percussion: percussion normal Cardio: Palpation: normal PMI Rate: regular rate Rhythm: regular rhythm Heart sounds: S1 normal heart sound present and S2 normal heart sound present Peripheral pulses: Peripheral pulses 2+ throughout GI: Inspection: normal to inspection Auscultation: normal bowel sounds Rectal Exam: deferred : General: Yes CVA tenderness on the left Back/Spine/Pelvis: Back: CVA tenderness Skin: General skin exam: normal color Lesions: no lesions Rashes: no rashes Trauma: no lacerations or abrasions Wounds: no wounds Hair: normal Nails: normal Neuro: General: oriented to person, oriented to place, oriented to time and patient oriented x3 Cranial nerves: Yes Equal, round and reactive pupils present and Yes Normal hearing present Cognition (Neuro): normal cognition Speech: normal speech Gait exam (Neuro): Normal gait present Motor exam (neuro): 5/5 motor strength present throughout Sensory Exam: normal sensation Extrem: General: normal to inspection Right upper extremity: normal to inspection and shoulder/upper arm Left upper extremity: normal to inspection and shoulder/upper arm Right lower extremity: normal to inspection Left lower extremity: normal to inspection Psych: Appearance: grossly normal Mental Status: mental status grossly normal Speech and movement: Normal speech and movement present Affect: normal affect Attitude: cooperative Thought process: Normal thought process present Insight: Good insight present (Psych) Judgement: Good judgement present (Psych) DS: Data Data Completed and Pending Pending studies at discharge: Pending at discharge 07/01/25 13:24 Surgical [PTH] Routine Labs on day of discharge: Labs from last 24 hours 07/02/25 05:30 WBC 6.9 RBC 3.75 L Hgb 11.4 L Hct 35.3 L MCV 94.1 MCH 30.4 MCHC 32.3 RDW 13.9 Plt Count 262 MPV 9.4 Sodium 136 L Potassium 4.4 Chloride 107 Carbon Dioxide 28 Anion Gap 1 L BUN 8 D Creatinine 0.71 Estim Creat Clear Calc 107 Estimated GFR > 60 Glucose 104 Lactic Acid 1.0 Calcium 8.4 Discharge Plan Discharge Attending physician on discharge: Nikolai Garza Oca Consulting providers: Amber Saunders; Mima Rose Discharging Clinician: Mei Koo Patient Disposition: Home Activity: december shower Diet: heart healthy Discharge Instructions: Pain control with Ibuprofen & Tylenol, oxycodone for breakthrough pain Stent removal in 1-2 weeks; urology office will contact you to schedule. Patient Instructions: Antibiotic Form Patient Language: Belarusian Stand Alone Forms: General Discharge Information Follow-up/Referrals: Bakari Warren MD [Primary Care Provider, Unknown] - 2 Weeks Mima Rose MD [Physician, Urology] - 2 Weeks Referral Note: urology office will contact you for f/u namrata Discharge Medications: Continued buspirone 15 mg tablet 15 mg PO DAILY meloxicam 15 mg tablet 15 mg PO DAILY sertraline 100 mg tablet 100 mg PO DAILY Date of admission: 06/30/25 22:16 Primary Care Provider: Bakari Warren Admitting Provider: Jason Lyon Attending physician on admission: Jason Lyon Condition: Stable Quality VTE Prophylaxis VTE prophylaxis: mechanical ordered Hospitalist MIPS Heart Failure (Exclusion) Patient has history of Heart Transplant or Left Ventricular Assistive Device?: No IF YES, STOP HERE Heart Failure (Qualifier) Patient has current or prior documentation of LVEF less than or equal to 40%, or mod/servere depressed LVSF?: No IF NO, STOP HERE
== END 2025-07-02 13:20 | disposition home or self-care (01) ==
LOC: ANHED 22:07 → ANH2MED 07-01 06:44 → ANH3MEDSUR 07-04 07:49
PROVIDERS: Nurse Practitioner; Registered Nurse; Urology; Admitting Provider Internal Medicine; Emergency Provider Emergency Medicine; PCP Family Medicine; Visit Provider Student in an Organized Health Care Education/Training Program
PROC: (CPT 52352; principal; 2025-07-01 12:00)
DX: N13.2 Hydronephrosis with renal and ureteral calculous obstruction (principal); F41.8 Other specified anxiety disorders
CPT/HCPCS: 52356; 36415; 72131; 74176; 74420; 80048; 80053; 81001; 82365; 83605; 85025; 85027; 87086; 88300; 96374; 96375; 99285; J0690; A9270; C1769; C1894; C2617; G0378; J0696; J1171; J2003; J2250; J2270; J2405; J2704; J3010; J7120; Q9966